=== PATIENT | female | born 1945 | race Caucasian/White ===

== ENCOUNTER 2018-06-05 09:44 | Emergency (ER) | payer MEDICARE, OTHER ==
[2018-06-05] MEDS ORDERED: diphenhydrAMINE 50 MG/ML VIAL ONE (10:55)
[2018-06-05] MEDS ORDERED: Metoclopramide HCl 10 MG/2 ML VIAL ONE (10:55)
[2018-06-05] MEDS ORDERED: Acetaminophen 500 MG TAB ONE (11:03)
--- NOTE | 2018-06-05 12:06 | CT ---
CT HEAD WITHOUT CONTRAST: Date: 06/05/18 Multiple axial tomograms obtained through the head without IV enhancement. INDICATION: Headache. FINDINGS: Ventricles have normal size and position. There are mild chronic ischemic white matter changes. Vilas ncies in the region of the head of the caudate on the right suggest old lacunar infarct. There is no evidence of acute hemorrhage or mass. No evidence of cortical infarct. Visualized sinuses and mastoid s are well aerated and clear. IMPRESSION: Evidence of chronic ischemic changes as described. No acute process. POS: H
[2018-06-05] MEDS ORDERED: Magnesium 2 GM/50 ML BAG (IN WATER) ONE (12:31)
== END 2018-06-05 13:49 | disposition home or self-care (01) ==
LOC: ERS 09:44
DX: G43.909 Migraine, unspecified, not intractable, without status migrainosus (principal); I10 Essential (primary) hypertension; Z79.82 Long term (current) use of aspirin; Z79.899 Other long term (current) drug therapy
CPT/HCPCS: 70450; 96365; 96366; 96368; 96375; J1200; J2765; J3475

== ENCOUNTER 2018-12-23 13:12 | Outpatient (CLI) | payer MEDICARE, BC ==
--- NOTE | 2018-12-23 15:23 | BD ---
BONE DENSITOMETRY USING DEXA: Date: 12/23/18 HISTORY: Postmenopausal screening for osteoporosis. FINDINGS: Lumbar Spine: BMD (g/cm2) L1 0.675 T-Score: -2.9 Z-Score: -0.8 L2 0.780 T-Score: -2.3 Z-Score: 0.1 L3 0.893 T-Score: -1.7 Z-Score: 0.7 L4 0.972 T-Score: -0.8 Z-Score: 1.7 L1-L4 0.834 T-Score: -1.9 Z-Score: 0.4 Femoral Neck: 0.513 T-Score: -3.0 Z-Score: -1.0 Total Femur: 0.756 T-Score: -1.5 Z-Score: 0.0 IMPRESSION: Osteoporosis. POS: OFF
== END 2018-12-23 13:13 | disposition home or self-care (01) ==
LOC: BICMAMMO 13:12
PROVIDERS: ATTEND Physician Assistant
DX: Z13.820 Encounter for screening for osteoporosis (principal); M47.12 Other spondylosis with myelopathy, cervical region; M81.0 Age-related osteoporosis without current pathological fracture
CPT/HCPCS: 77080

== ENCOUNTER 2019-01-08 12:12 | Outpatient (CLI) | payer MEDICARE, BC ==
--- NOTE | 2019-01-08 14:01 | MMO ---
Bilateral MAMMO Bilat Screen [facility]. CLINICAL HISTORY: Patient is 73 years old and is seen for screening. The patient has no family history of breast cancer. The patient has no personal history of cancer. VIEWS: The views performed were: bilateral craniocaudal with tomosynthesis and bilateral mediolateral oblique with tomosynthesis. This study has been interpreted with the assistance of computer-aided detection. MAMMOGRAM FINDINGS: The breasts are heterogeneously dense, which could obscure a lesion on mammography. There are no suspicious masses, suspicious calcifications, or new areas of architectural distortion. IMPRESSION: THERE IS NO MAMMOGRAPHIC EVIDENCE OF MALIGNANCY. A ROUTINE FOLLOW-UP MAMMOGRAM IN 1 YEAR IS RECOMMENDED. THE RESULTS OF THIS EXAM WERE SENT TO THE PATIENT. ACR BI-RADS Category 1 - Negative MAMMOGRAPHY NOTE: 1. A negative mammogram report should not delay a biopsy if a dominant of clinically suspicious mass is present. 2. Approximately 10% to 15% of breast cancers are not detected by mammography. 3. Adenosis and dense breasts may obscure an underlying neoplasm. Reported by: ROSALBA FAY MD Electonically Signed: [id number]
== END 2019-01-08 12:13 | disposition home or self-care (01) ==
LOC: BICMAMMO 12:12
PROVIDERS: ATTEND Physician Assistant
DX: Z12.31 Encounter for screening mammogram for malignant neoplasm of breast (principal)
CPT/HCPCS: 77063; 77067

== ENCOUNTER 2019-07-29 12:06 | Outpatient (CLI) | payer MEDICARE, BC ==
--- NOTE | 2019-07-29 15:23 | ULT ---
EXAM: BILATERAL LOWER EXTREMITY VENOUS DUPLEX ULTRASOUND INCLUDING COLOR AND SPECTRAL DOPPLER IMAGIN07/29/19 HISTORY: Bilateral leg pain. COMPARISON: 01/24/16. FINDINGS: Exam performed from groin to ankle including visualized greater saphenous, common femoral, superficia l femoral, profunda femoral, popliteal, trifurcation, and posterior tibial vein regions. There is ph asic flow with normal compressibility and normal augmentation at all levels. No evidence for intralum inal thrombus. IMPRESSION: No evidence for deep venous thrombosis. POS: [facility]
--- NOTE | 2019-08-05 14:54 | ULT ---
LOWER EXTREMITY ARTERIAL EVALUATION WITH SEGMENTAL LIMB PRESSURES 07/29/19 Examination of the right leg reveals mildly abnormal femoral and popliteal waveforms as well as dorsa lis pedis waveforms. Left lower extremity demonstrates more severe abnormalities in the femoral artery with biphasic to tr iphasic signals distally. ASSESSMENT: This study would be most consistent with mild right sided iliac disease. More severe left sided iliac or common femoral stenosis. Unfortunately ankle-arm index could not be calculated because blood pres sures could not be obtained in either arm due to noncompressible brachial arteries.
== END 2019-07-29 12:07 | disposition home or self-care (01) ==
LOC: BICULT 12:06 → ULT 12:07
PROVIDERS: ATTEND Family Medicine Sports Medicine
DX: I83.893 Varicose veins of bilateral lower extremities with other complications (principal); I73.9 Peripheral vascular disease, unspecified
CPT/HCPCS: 93922; 93970

== ENCOUNTER 2019-09-04 10:24 | Emergency (ER) | payer MEDICARE, BC ==
[2019-09-04] MEDS ORDERED: Metoclopramide HCl 10 MG/2 ML VIAL ONE (10:40)
[2019-09-04] MEDS ORDERED: hydrALAZINE 20 MG/ML VIAL ONE (10:40)
[2019-09-04] MEDS ORDERED: Ondansetron PF 4 MG/2 ML Vial ONE (10:40)
[2019-09-04] MEDS ORDERED: diphenhydrAMINE 50 MG/ML VIAL ONE (10:40)
[2019-09-04 10:51] LABS: #Basophils 0.1 thou/uL (0.0-0.2); #Eosinphils 0.4 thou/uL (0.0-0.7); #Lymphocytes 2.3 thou/uL (1.20-3.40); #Monocytes 0.7 thou/uL (0.11-0.59); #Neutrophils 12.7 thou/uL (1.40-6.50); %Basophils 0.5 % (0.0-1.0); %Eosinophils 2.6 % (0.0-10.0); %Lymphocytes 14.2 % (21.0-51.0); %Monocytes 4.2 % (0.0-10.0); %Neutrophils 78.5 % (42.0-75.0); Hemoglobin 14.6 g/dL (12.0-16.0); Mean Corpuscular HGB CONC 33.6 g/dL (32.0-36.0); Mean Corpuscular Hemoglobin 33.4 pg (27.0-31.0); Mean Corpuscular Volume 99.5 fL (78.0-98.0); Mean Platelet Volume 9.2 fL (7.4-10.4); Platelet Count 166 thou/uL (130-400); RBC Distribution Width 11.1 % (11.5-14.5); Red Blood Cell (RBC) Count 4.37 mill/uL (4.20-5.40); White Blood Cell (WBC) Count 16.1 thou/uL (4.8-10.8)
[2019-09-04 10:59] LABS: INR-International Normal Ratio 0.9; Prothrombin Time 12.5 sec (12.0-14.7)
[2019-09-04 11:00] LABS: PTT 30.2 sec (22.9-36.1)
--- NOTE | 2019-09-04 11:20 | RAD ---
EXAM: Single view of the chest HISTORY: Nausea vomiting and headache COMPARISON: 01/23/2016 FINDINGS: Single view of the chest shows a normal sized cardiomediastinal silhouette. There is no clotilde dence of consolidation, mass, or pleural effusion. The bones are unremarkable. IMPRESSION: No evidence of acute cardiopulmonary disease
[2019-09-04 11:22] LABS: ALT (SGPT) 37 U/L (8-55); AST (SGOT) 32 U/L (5-34); Albumin 4.7 g/dL (3.4-4.8); Alkaline Phosphatase 102 U/L (40-110); Anion Gap 18 mmol/L (10-20); BUN (Urea Nitrogen) 34 mg/dL (9.8-20.1); Bilirubin, Total 0.5 mg/dL (0.2-1.2); CK (CPK) 104 U/L (29-168); Calc. Creatinine Clearance 0 mL/min (70-130); Calcium 10.2 mg/dL (7.8-10.44); Carbon Dioxide 18 mmol/L (23-31); Chloride 107 mmol/L (98-107); Estimated GFR-MDRD 33; Globulin 3.5 g/dL (2.4-3.5); Glucose 114 mg/dL (83-110); Lipase 29 U/L (8-78); Protein, Total 8.2 g/dL (6.0-8.3); Sodium 139 mmol/L (136-145)
--- NOTE | 2019-09-04 11:57 | CT ---
CT BRAIN: Date: 09/04/2019 PROVIDED CLINICAL HISTORY: Headache and vomiting. FINDINGS: Comparison with 06/05/2018. The ventricular system appears normal in size and morphology. There is no evidence for intracranial h emorrhage or mass effect. Chronic microvascular ischemic changes are redemonstrated, similar to prior . The extracranial soft tissues and osseous structures demonstrate no acute abnormality. Stable mucos al thickening seen involving the sphenoid sinus. IMPRESSION: No evidence for intracranial hemorrhage or mass effect. POS: [facility]
--- NOTE | 2019-09-05 15:19 | EKG ---
Test Reason : Blood Pressure : / mmHG Vent. Rate : 099 BPM Atrial Rate : 099 BPM P-R Int : 114 ms QRS Dur : 086 ms QT Int : 374 ms P-R-T Axes : 012 020 063 degrees QTc Int : 479 ms Sinus rhythm with frequent Premature ventricular complexes in a pattern of bigeminy Otherwise normal ECG Confirmed by MISAEL RAPHAEL, MARGARET ([id number]), editor news RICH POSEY ([id number]) on 09/05/2019 3:19:02 PM Referred By: Confirmed By:MARGARET DOUGLAS MD
== END 2019-09-04 12:07 | disposition home or self-care (01) ==
LOC: ERS 10:24
DX: I16.0 Hypertensive urgency (principal); R11.2 Nausea with vomiting, unspecified; R51 Headache; I10 Essential (primary) hypertension
CPT/HCPCS: 70450; 71045; 80053; 82550; 83690; 83880; 84484; 85025; 85610; 85730; 93005; 96365; 96375; J0360; J1200; J2405; J2765

== ENCOUNTER 2019-11-22 11:24 | Emergency (ER) | payer MEDICARE, BC ==
[2019-11-22 12:38] LABS: #Basophils 0.1 thou/uL (0.0-0.2); #Eosinphils 0.2 thou/uL (0.0-0.7); #Lymphocytes 1.9 thou/uL (1.20-3.40); #Monocytes 0.7 thou/uL (0.11-0.59); #Neutrophils 8.9 thou/uL (1.40-6.50); %Basophils 0.6 % (0.0-1.0); %Eosinophils 2.1 % (0.0-10.0); %Lymphocytes 15.9 % (21.0-51.0); %Monocytes 5.9 % (0.0-10.0); %Neutrophils 75.5 % (42.0-75.0); Mean Corpuscular Hemoglobin 33.8 pg (27.0-31.0); Mean Corpuscular Volume 99.4 fL (78.0-98.0); Mean Platelet Volume 9.6 fL (7.4-10.4); Platelet Count 134 thou/uL (130-400); RBC Distribution Width 11.1 % (11.5-14.5); Red Blood Cell (RBC) Count 4.15 mill/uL (4.20-5.40); White Blood Cell (WBC) Count 11.8 thou/uL (4.8-10.8)
[2019-11-22 12:49] LABS: ALT (SGPT) 36 U/L (8-55); AST (SGOT) 31 U/L (5-34); Albumin 4.4 g/dL (3.4-4.8); Alkaline Phosphatase 107 U/L (40-110); Anion Gap 14 mmol/L (10-20); BUN (Urea Nitrogen) 25 mg/dL (9.8-20.1); Bilirubin, Total 0.5 mg/dL (0.2-1.2); Calc. Creatinine Clearance 0 mL/min (70-130); Calcium 9.5 mg/dL (7.8-10.44); Carbon Dioxide 24 mmol/L (23-31); Chloride 103 mmol/L (98-107); Estimated GFR-MDRD 38; Globulin 3.1 g/dL (2.4-3.5); Glucose 83 mg/dL (83-110); Lipase 24 U/L (8-78); Potassium 4.1 mmol/L (3.5-5.1); Protein, Total 7.5 g/dL (6.0-8.3); Sodium 137 mmol/L (136-145)
[2019-11-22 12:59] LABS: Bilirubin Negative (Negative); Blood, Urine 2+ (Negative); Clarity Turbid (Clear); Glucose, Urine (Dipstick) Normal (Negative); Ketone, Urine Negative (Negative); Leukocyte 500 Leu/uL (Negative); Nitrite Negative (Negative); Protein, Urine (Dipstick) 50 mg/dL (Neg-Trace); RBC/HPF 21-50 HPF (0-3); Specific Gravity, Urine 1.015 (1.002-1.036); Squamous Epithelial 0-3 HPF (0-3); Urobilinogen Normal mg/dL (Less than 2); WBC/HPF Greater than 50 HPF (0-3); pH, Urine 6.5 (5.0-9.0)
[2019-11-22 13:06] LABS: Bacteria/HPF 2+ HPF (None Seen)
== END 2019-11-22 13:37 | disposition home or self-care (01) ==
LOC: ERS 11:24
DX: N30.00 Acute cystitis without hematuria (principal); E03.9 Hypothyroidism, unspecified; I10 Essential (primary) hypertension; G43.909 Migraine, unspecified, not intractable, without status migrainosus; Z79.899 Other long term (current) drug therapy
CPT/HCPCS: 80053; 81003; 81015; 83605; 83690; 85025; 87077; 87086; 87186; 99283

== ENCOUNTER 2020-04-05 11:17 | Inpatient (IN) | payer MEDICARE, BC ==
[~2020-04-05 11:17] MED LIST: Iopamidol-370 76% 500 ML 1 ML ONE
[2020-04-05] MEDS ORDERED: Ondansetron PF 4 MG/2 ML Vial ONE (11:36)
[2020-04-05] MEDS ORDERED: Fentanyl 100 MCG/2 ML VIAL ONE (11:36)
[2020-04-05 11:56] LABS: #Eosinphils 0.1 thou/uL (0.0-0.7); #Lymphocytes 2.3 thou/uL (1.20-3.40); #Monocytes 0.3 thou/uL (0.11-0.59); #Neutrophils 4.6 thou/uL (1.40-6.50); %Basophils 0.6 % (0.0-1.0); %Lymphocytes 30.5 % (21.0-51.0); %Monocytes 4.6 % (0.0-10.0); %Neutrophils 62.3 % (42.0-75.0); Hemoglobin 14.4 g/dL (12.0-16.0); Mean Corpuscular HGB CONC 34.8 g/dL (32.0-36.0); Mean Corpuscular Volume 97.7 fL (78.0-98.0); Mean Platelet Volume 9.1 fL (7.4-10.4); Platelet Count 151 thou/uL (130-400); RBC Distribution Width 11.3 % (11.5-14.5); Red Blood Cell (RBC) Count 4.23 mill/uL (4.20-5.40); White Blood Cell (WBC) Count 7.4 thou/uL (4.8-10.8)
--- NOTE | 2020-04-05 11:57 | RAD ---
XR Chest 1 View Portable HISTORY: Altered mental status, headache, dizziness COMPARISON: 09/04/2019 FINDINGS: The heart size is normal. The aorta is tortuous. The lungs are without focal areas of conso lidation, pneumothorax or pleural effusions. IMPRESSION: No radiographic evidence of acute cardiopulmonary process.
[2020-04-05 12:01] LABS: INR-International Normal Ratio 0.9; PTT 29.9 sec (22.9-36.1); Prothrombin Time 12.3 sec (12.0-14.7)
--- NOTE | 2020-04-05 12:08 | CT ---
CT HEAD WITHOUT IV CONTRAST COMPARISON: 09/04/2019 HISTORY: Headache. Patient reports severe left-sided head pain and dizziness. Numbness and blurry vision. TECHNIQUE: Axial CT imaging at 5 mm intervals from vertex through skull base without contrast FINDINGS: There is decreased attenuation in the periventricular white matter which is nonspecific but likely re flective of chronic small vessel ischemic changes. Low attenuation areas are again seen in each basal ganglia suggesting remote lacunar infarctions. Stable linear low-attenuation area in the left c erebellar hemisphere is seen related to remote infarction. There is mild cerebral volume loss. The ventricular system is normal in size, shape, and position for the degree of sulcal atrophy. There is no evidence of an acute cord infarction, hemorrhage, mass effect, or midline shift. Skull base has a normal CT appearance. Mild mucosal thickening is again seen within the left sphenoid sinus. There are findings which may be related to prior ethmoidectomy. Findings are stable compared to prior study. Osseous structures appear intact. CT head is overall stable compared to prior exam. IMPRESSION: 1. No acute intracranial abnormality demonstrated. 2. 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 Stable sinus disease.
[2020-04-05 12:20] LABS: ALT (SGPT) 36 U/L (8-55); AST (SGOT) 32 U/L (5-34); Albumin 4.4 g/dL (3.4-4.8); Alkaline Phosphatase 106 U/L (40-110); Anion Gap 19 mmol/L (10-20); BUN (Urea Nitrogen) 26 mg/dL (9.8-20.1); Bilirubin, Total 0.7 mg/dL (0.2-1.2); CK (CPK) 80 U/L (29-168); Calc. Creatinine Clearance 0 mL/min (70-130); Calcium 9.6 mg/dL (7.8-10.44); Carbon Dioxide 23 mmol/L (23-31); Chloride 101 mmol/L (98-107); Globulin 3.4 g/dL (2.4-3.5); Glucose 97 mg/dL (83-110); Lipase 16 U/L (8-78); Potassium 3.7 mmol/L (3.5-5.1); Protein, Total 7.8 g/dL (6.0-8.3); Sodium 139 mmol/L (136-145)
[2020-04-05] MEDS ORDERED: niCARdipine 20MG In NaCl 20 MG/200 ML BAG ONE ×3 (12:24→20:09)
[2020-04-05 12:34] LABS: Bilirubin Negative (Negative); Blood, Urine Negative (Negative); Clarity Clear (Clear); Glucose, Urine (Dipstick) Normal (Negative); Ketone, Urine Negative (Negative); Leukocyte Negative Leu/uL (Negative); Nitrite Negative (Negative); Protein, Urine (Dipstick) Negative (Neg-Trace); Specific Gravity, Urine 1.011 (1.002-1.036); Urobilinogen Normal mg/dL (Less than 2)
[2020-04-05] MEDS ORDERED: Lorazepam 2 MG/ML VIAL ONE (12:38)
[2020-04-05] MEDS ORDERED: Promethazine HCl 25 MG/ML VIAL ONE (12:38)
[2020-04-05] MEDS ORDERED: diphenhydrAMINE 50 MG/ML VIAL ONE (12:39)
[2020-04-05] MEDS ORDERED: Famotidine/PF 20 mg/2ml Vial ONE (12:39)
[2020-04-05] MEDS ORDERED: Hydrocortisone Sod Succ/PF 100 mg/2 ml Vial ONE (12:39)
--- NOTE | 2020-04-05 14:09 | CT ---
CT angiogram head: 04/05/2020 COMPARISON: None available HISTORY: Left-sided pain and numbness, dizziness, "numbness all over", blurred vision, diffuse extrem ity ataxia TECHNIQUE: Axial CT imaging at 1.25 mm intervals from vertex through skull base with IV contrast usin g CT angiogram protocol. Coronal and sagittal 3-D reformatted imaging obtained. FINDINGS: Visualized portions of bilateral vertebral arteries appear unremarkable. The basilar artery and its branches appear patent. No saccular aneurysm, high-grade stenosis, or vasc ular occlusion is apparent involving the posterior circulation. There is atherosclerotic calcification involving the mid cervical aspect of the left internal carotid artery. The bilateral internal carotid arteries distally demonstrate patency. The A1 segment is patent bilaterally. The A1 segment on the right is relatively diminutive. Distal ELISE branches appear unremarkable. The M1 segment, MCA bifurcation, distal MCA branches, and ICA bifurcation appear within normal limits bilaterally. There is no saccular aneurysm, high-grade stenosis, or vascular occlusion seen involving the anterior circulation. Review of the osseous structures demonstrates no acute findings. IMPRESSION: Unremarkable CT angiogram of the head.
--- NOTE | 2020-04-05 17:52 | PDOC.HHP ---
Hospitalist HPI - History of Present Illness Intractable headache History of Present Illness: Patient is a 74-year-old female with a known past medical history of migraine headache, Hypothyroidism, hypertension and multiple TIAs in the past. She presented to the ER accompanied by her for an acute onset of intractable headache. Patient went to bed with a headache, which he managed with Tylenol. 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 states that patient usually gets headaches in the morning when she wakes up but nothing is today's presentation. Is having some nausea but no vomiting. She has no focal neurologic deficits. She has been compliant with her medications. She checks her blood pressure on a regular basis except to the day before presentation. Her usual blood pressure ranges between 120s and 160s. ED Course: Found to have SBP of 225. She failed challenge with diltiazem injections and was finally started on nicardipine infusion During my encounter with the patient, she was alert but slightly lethargic. She is alert and oriented x2 CT head was negative for intracranial hemorrhage - Exam General - other findings: Awake but lethargic Eye: PERRL, anicteric sclera ENT: normocephalic atraumatic Heart: no murmur, no gallops Heart - other findings: Tachycardic Respiratory: CTAB, no wheezes, no rales, no ronchi Gastrointestinal: soft, non-tender, non-distended, normal bowel sounds Extremities: no clubbing, no edema Neurological: cranial nerve grossly intact, no focal deficits Musculoskeletal: generalized weakness Musculoskeletal - other findings: 3 out of 5 strength in all extremities Psychiatric: normal affect, normal behavior Hospitalist Results - Labs Result Diagrams: 04/05/20 11:33 04/05/20 11:33 Lab results: WBC 7.4 thou/uL (4.8-10.8) 04/05/20 11:33 Hgb 14.4 g/dL (12.0-16.0) 04/05/20 11:33 Hct 41.3 % (36.0-47.0) 04/05/20 11:33 MCV 97.7 fL (78.0-98.0) 04/05/20 11:33 Plt Count 151 thou/uL (130-400) 04/05/20 11:33 Neutrophils % 62.3 % (42.0-75.0) 04/05/20 11:33 Sodium 139 mmol/L (136-145) 04/05/20 11:33 Potassium 3.7 mmol/L (3.5-5.1) 04/05/20 11:33 Chloride 101 mmol/L (98-107) 04/05/20 11:33 Carbon Dioxide 23 mmol/L (23-31) 04/05/20 11:33 BUN 26 mg/dL (9.8-20.1) H 04/05/20 11:33 Creatinine 1.42 mg/dL (0.6-1.1) H 04/05/20 11:33 Glucose 97 mg/dL (83-110) 04/05/20 11:33 Calcium 9.6 mg/dL (7.8-10.44) 04/05/20 11:33 Total Bilirubin 0.7 mg/dL (0.2-1.2) 04/05/20 11:33 AST 32 U/L (5-34) 04/05/20 11:33 ALT 36 U/L (8-55) 04/05/20 11:33 Alkaline Phosphatase 106 U/L (40-110) 04/05/20 11:33 Creatine Kinase 80 U/L (29-168) 04/05/20 11:33 Troponin I Less than 0.010 ng/mL (< 0.028) 04/05/20 11:33 B-Natriuretic Peptide 139.0 pg/mL (0-100) H 04/05/20 11:33 Serum Total Protein 7.8 g/dL (6.0-8.3) 04/05/20 11:33 Albumin 4.4 g/dL (3.4-4.8) 04/05/20 11:33 Lipase 16 U/L (8-78) 04/05/20 11:33 Urine Ketones Negative mg/dL (Negative) 04/05/20 12:23 Urine Blood Negative (Negative) 04/05/20 12:23 Urine Nitrite Negative (Negative) 04/05/20 12:23 Ur Leukocyte Esterase Negative Tono/uL (Negative) 04/05/20 12:23 Hospitalist H&P A/P - Problem (1) Hypertensive urgency Code(s): I16.0 - HYPERTENSIVE URGENCY Status: Acute (2) History of TIA (transient ischemic attack) Code(s): Z86.73 - PRSNL HX OF TIA (TIA), AND CEREB INFRC W/O RESID DEFICITS Status: Acute (3) Anxiety and depression Code(s): F41.9 - ANXIETY DISORDER, UNSPECIFIED; F32.9 - MAJOR DEPRESSIVE DISO RDER, SINGLE EPISODE, UNSPECIFIED Status: Chronic (4) Hypertension Code(s): I10 - ESSENTIAL (PRIMARY) HYPERTENSION Status: Chronic (5) Hypothyroid Code(s): E03.9 - HYPOTHYROIDISM, UNSPECIFIED Status: Chronic (6) Acute kidney injury Code(s): N17.9 - ACUTE KIDNEY FAILURE, UNSPECIFIED Status: Resolved (7) Migraine Code(s): G43.909 - MIGRAINE, UNSP, NOT INTRACTABLE, WITHOUT STATUS MIGRAINOSUS Status: Inactive - Plan Plan: Assessment This is a 74-year-old female with a known past medical history of hypertension, hypothyroidism and chronic migraine currently admitted with intractable headache. Was found to have severely elevated blood pressure with SBP of 225. CT head ruled out intracranial hemorrhage, CTA of [place] w/o subarachnoid hemorrhage. She may have pituitary microadenoma based on the brain MRI from November 2015. She was also found to have right posterior superior parietal lobe infarct and evidence of small vessel disease. I ordered thyroid function tests process endocrinological etiology. In the meantime, she is doing better on nicardipine infusion with SBP in the 170s now. Hypertensive urgency Intractable headache History of CVA Possible pituitary microadenoma Hypothyroidism Chronic migraine Plan: Admit to IMCU with telemetry Continue nicardipine infusion Resume oral blood pressure medications Follow-up thyroid function test. If significantly abnormal, I will repeat her brain MRI I also ordered a 2D echo PRN fiorecet for headache Urine toxicology has been ordered
[2020-04-05] MEDS ORDERED: Fioricet 325/50/40 mg Tablet PO PRN (18:01)
[2020-04-05 18:06] LABS: Free T4 (Free Thyroxine) 1.08 ng/dL (0.70-1.48); Thyroid Stimulating Hormone 0.2129 uIU/mL (0.35-4.94)
[2020-04-05] MEDS ORDERED: Lorazepam 0.5 MG TAB PO PRN (18:23)
[2020-04-05] MEDS ORDERED: NIFEdipine XL 30 MG TAB PO SCH (19:15)
[2020-04-05] MEDS ORDERED: Atorvastatin Calcium 10 MG TAB PO SCH (21:00)
[2020-04-05] MEDS ORDERED: cloNIDine 0.1 MG TAB ONE (21:42)
[2020-04-05] MEDS ORDERED: NIFEdipine XL 30 MG TAB ONE (21:42)
[2020-04-05] MEDS: cloNIDine 0.1 MG TAB PO SCH (21:50)
[2020-04-06] MEDS ORDERED: Fioricet 325/50/40 mg Tablet ONE (00:59)
[2020-04-06] MEDS ORDERED: niCARdipine 20MG In NaCl 20 MG/200 ML BAG ONE (01:09)
[2020-04-06] MEDS ORDERED: traMADol HCl 50 MG TAB PO PRN ×2 (03:07→03:15)
[2020-04-06] MEDS ORDERED: Ketorolac Tromethamine 30 MG/ML VIAL ONE (03:10)
[2020-04-06] MEDS ORDERED: traMADol HCl 50 MG TAB ONE (03:10)
[2020-04-06] MEDS ORDERED: Acetaminophen/Codeine 30-300mg Tablet PO PRN (06:46)
[2020-04-06] MEDS ORDERED: Acetaminophen/Codeine 30-300mg Tablet ONE (07:57)
[2020-04-06] MEDS ORDERED: cloNIDine 0.1 MG TAB ONE (07:58)
[2020-04-06] MEDS ORDERED: NIFEdipine XL 30 MG TAB ONE (07:58)
[2020-04-06] MEDS ORDERED: Aspirin Chewable 81 MG TAB ONE (07:58)
[2020-04-06] MEDS: cloNIDine 0.1 MG TAB PO SCH ×2 (08:04→17:19)
[2020-04-06] MEDS ORDERED: Aspirin 81 mg Enteric Coated Tablet PO SCH (09:00)
[2020-04-06] MEDS ORDERED: NIFEdipine XL 30 MG TAB PO SCH (09:00)
[2020-04-06 09:01] LABS: Anion Gap 15 mmol/L (10-20); BUN (Urea Nitrogen) 21 mg/dL (9.8-20.1); Calc. Creatinine Clearance 35 mL/min (70-130); Calcium 8.8 mg/dL (7.8-10.44); Carbon Dioxide 21 mmol/L (23-31); Chloride 104 mmol/L (98-107); Glucose 84 mg/dL (83-110); Potassium 3.7 mmol/L (3.5-5.1); Sodium 136 mmol/L (136-145)
[2020-04-06] MEDS ORDERED: hydrALAZINE 25 MG TAB ONE (09:49)
[2020-04-06 14:16] LABS: SARS-CoV-2 PCR by NAA Not Detected (NotDetected)
[2020-04-06 15:48] VITALS: BMI 20.3
[2020-04-06 16:19] VITALS: TEMP 98.2
--- NOTE | 2020-04-06 17:06 | PDOC.DS.DS ---
Provider - Provider Date of Admission: 04/05/20 14:57 Date of Discharge: 04/06/20 Admitting Provider: Ravindra Briones MD Primary Care Physician: Zee Ladd PA-C Course - Hospital Course Hospital Course: It is a 74-year-old female with a past medical history of chronic migraine, hypertension and hyper hypothyroidism. She was admitted yesterday with intractable headache and was found to be in hypertensive urgency with SBP of 215. She was placed on nicardipine drip infusion which restored her blood pressure to safer levels. I had to add nifedipine to her antihypertensive agent for better blood pressure control. Her echocardiogram was unremarkable except for impaired relaxation. Her EF was preserved. Her thyroid function test was within normal limits. Patient is alert and oriented and walking without assistance. She will be discharged home today. - Labs Lab Results: 04/05/20 11:33 04/06/20 08:34 Abnormal Lab Results - Last 48 hrs 04/05/20 11:33: MCH 34.0 H, RDW 11.3 L 04/05/20 11:33: BUN 26 H, Creatinine 1.42 H 04/05/20 11:33: B-Natriuretic Peptide 139.0 H 04/05/20 11:33: TSH 3rd Generation 0.2129 L 04/06/20 08:34: Carbon Dioxide 21 L, BUN 21 H, Creatinine 1.15 H - Physical Exam Vitals: Vital Signs (12 hours) Temp Pulse Resp BP BP Pulse Ox 04/06/20 14:18 98.2 F 84 16 138/81 99 04/06/20 14:15 97 04/06/20 08:05 91 142/80 H 04/06/20 08:04 142/80 H Weight Weight 115 lb Physical Exam: The patient was seen and examined on the day of discharge. General: Not in acute distress. Alert and awake HEENT: Head atraumatic, normocephalic. EOM intact Pulmonary: Lungs are clear to auscultation bilaterally CVS: Normal S1 and S2. Regular rate. Abdomen: Soft, nontender, nondistended Extremities: Without edema. Good range of motion in all extremities Skin: Warm and well perfused Psych: Mood and affect appropriate. Neuro: Grossly intact Problem - Problem (1) Hypertensive urgency Code(s): I16.0 - HYPERTENSIVE URGENCY Status: Acute (2) History of TIA (transient ischemic attack) Code(s): Z86.73 - PRSNL HX OF TIA (TIA), AND CEREB INFRC W/O RESID DEFICITS Status: Acute (3) Anxiety and depression Code(s): F41.9 - ANXIETY DISORDER, UNSPECIFIED; F32.9 - MAJOR DEPRESSIVE DISORDER, SINGLE EPISODE, UNSPECIFIED Status: Chronic (4) Hypertension Code(s): I10 - ESSENTIAL (PRIMARY) HYPERTENSION Status: Chronic (5) Hypothyroid Code(s): E03.9 - HYPOTHYROIDISM, UNSPECIFIED Status: Chronic (6) Acute kidney injury Code(s): N17.9 - ACUTE KIDNEY FAILURE, UNSPECIFIED Status: Resolved (7) Migraine Code(s): G43.909 - MIGRAINE, UNSP, NOT INTRACTABLE, WITHOUT STATUS MIGRAINOSUS Status: Inactive Plan - Discharge Medications Prescriptions: NIFEdipine [Procardia XL] 30 mg PO DAILY #30 tab Home Medications: Medication Instructions Recorded Confirmed Type Aspirin [Aspirin EC] 81 mg PO DAILY 01/23/16 08/20/16 History Atorvastatin Calcium 10 mg PO HS 01/23/16 08/20/16 History Divalproex Sodium [Divalproex 500 mg PO HS 01/23/16 08/20/16 History Sodium ER] LORazepam [Lorazepam] 0.5 mg PO TID PRN 01/23/16 08/20/16 History Levothyroxine Sodium [Synthroid] 88 mcg PO DAILY 01/23/16 08/20/16 History Rizatriptan Benzoate [Rizatriptan] 10 mg PO DAILY PRN 01/23/16 08/20/16 History cloNIDine [Catapres] 0.1 mg PO TID 01/23/16 08/20/16 History NIFEdipine [Procardia XL] 30 mg PO DAILY #30 tab 04/06/20 Rx traMADol HCl [Ultram] 50 mg PO Q12H PRN tab 04/06/20 Rx Allergies: ceftriaxone [From Rocephin] Allergy (Verified 06/08/19 11:45) Anaphylaxis iodine Allergy (Verified 06/08/19 11:45) Hives sumatriptan [From Imitrex] Allergy (Verified 06/08/19 11:45) states allergy, cannot remember her reaction. "MYACIN DRUGS" Allergy (Uncoded 06/08/19 11:45) Hives PER ER RECORD - Discharge Instructions Activity:: Activity as Tolerated - Follow up Plan Referrals: Zee Ladd PA-C [Primary Care Provider] - Disposition: HOME Quality - Care Measures CORE MEASURES:: N/A
[2020-04-06 17:25] VITALS: BP 142/80
--- NOTE | 2020-04-24 22:49 | EKG ---
Test Reason : Blood Pressure : / mmHG Vent. Rate : 094 BPM Atrial Rate : 094 BPM P-R Int : 182 ms QRS Dur : 090 ms QT Int : 426 ms P-R-T Axes : 027 013 052 degrees QTc Int : 532 ms Normal sinus rhythm Nonspecific ST abnormality Prolonged QT Abnormal ECG Confirmed by MISAEL RAPHAEL, MARGARET (12), restaurant expeditor RICH POSEY ([id number]) on 04/24/2020 10:49:34 PM Referred By: Confirmed By:MARGARET DOUGLAS MD
== END 2020-04-06 17:43 | disposition home or self-care (01) | DRG 305 ==
LOC: ERS 11:17 → ERHOLD 14:57 → SURG B 04-06 13:41
PROVIDERS: ADMIT Internal Medicine; ATTEND Internal Medicine
DX: I16.0 Hypertensive urgency (principal); N17.9 Acute kidney failure, unspecified; Z20.822 Contact with and (suspected) exposure to COVID-19; E03.9 Hypothyroidism, unspecified; I12.9 Hypertensive chronic kidney disease with stage 1 through stage 4 chronic kidney disease, or unspecified chronic kidney disease; N18.9 Chronic kidney disease, unspecified; F41.9 Anxiety disorder, unspecified; F32.9 Major depressive disorder, single episode, unspecified; G43.909 Migraine, unspecified, not intractable, without status migrainosus; Z90.710 Acquired absence of both cervix and uterus; Z88.1 Allergy status to other antibiotic agents; Z79.899 Other long term (current) drug therapy; Z79.890 Hormone replacement therapy; Z86.73 Personal history of transient ischemic attack (TIA), and cerebral infarction without residual deficits
CPT/HCPCS: 36415; 70450; 70496; 71045; 80048; 80053; 81003; 82550; 83690; 83880; 84439; 84443; 84481; 84484; 85025; 85610; 85730; 87635; 93005; 93306; 96365; 96366; 96368; 96374; 96375; J1200; J1720; J1885; J2060; J2405; J2550; J3010; Q9967; S0028; U0003; U0005

== ENCOUNTER 2020-12-04 12:12 | Emergency (ER) | payer BC, MEDICARE ==
[2020-12-04] MEDS ORDERED: Metoclopramide HCl 10 MG/2 ML VIAL ONE (14:08)
[2020-12-04] MEDS ORDERED: Metoclopramide 10 MG/10 ML UDCUP ONE (14:08)
[2020-12-04] MEDS ORDERED: diphenhydrAMINE 50 MG/ML VIAL ONE ×2 (14:08→16:24)
[2020-12-04 14:26] LABS: #Basophils 0.1 thou/uL (0.0-0.2); #Eosinphils 0.1 thou/uL (0.0-0.7); #Lymphocytes 2.3 thou/uL (1.20-3.40); #Monocytes 0.7 thou/uL (0.11-0.59); #Neutrophils 10.3 thou/uL (1.40-6.50); %Basophils 0.6 % (0.0-1.0); %Eosinophils 0.5 % (0.0-10.0); %Lymphocytes 17.2 % (21.0-51.0); %Monocytes 4.9 % (0.0-10.0); %Neutrophils 76.9 % (42.0-75.0); Hemoglobin 16.6 g/dL (12.0-16.0); Mean Corpuscular HGB CONC 33.3 g/dL (32.0-36.0); Mean Corpuscular Hemoglobin 33.1 pg (27.0-31.0); Mean Corpuscular Volume 99.4 fL (78.0-98.0); Mean Platelet Volume 9.1 fL (7.4-10.4); Platelet Count 195 thou/uL (130-400); RBC Distribution Width 11.8 % (11.5-14.5); Red Blood Cell (RBC) Count 5.03 mill/uL (4.20-5.40); White Blood Cell (WBC) Count 13.4 thou/uL (4.8-10.8)
[2020-12-04 14:51] LABS: Anion Gap 19 mmol/L (10-20); BUN (Urea Nitrogen) 25 mg/dL (9.8-20.1); Calc. Creatinine Clearance 0 mL/min (70-130); Carbon Dioxide 19 mmol/L (23-31); Chloride 101 mmol/L (98-107); Potassium 4.4 mmol/L (3.5-5.1); Sodium 135 mmol/L (136-145)
[2020-12-04 14:52] LABS: ALT (SGPT) 32 U/L (8-55); AST (SGOT) 33 U/L (5-34); Albumin 4.9 g/dL (3.4-4.8); Alkaline Phosphatase 104 U/L (40-110); Bilirubin, Total 0.7 mg/dL (0.2-1.2); Calcium 10.2 mg/dL (7.8-10.44); Globulin 4.1 g/dL (2.4-3.5); Glucose 101 mg/dL (83-110)
[2020-12-04] MEDS ORDERED: Iopamidol-370 76% 500 ML 1 ML ONE (15:26)
[2020-12-04] MEDS ORDERED: Labetalol HCl 100 MG/20 ML VIAL ONE (16:01)
[2020-12-04] MEDS ORDERED: Famotidine 20 MG TAB ONE (16:24)
[2020-12-04] MEDS ORDERED: methylPREDNISolone Sod Succ 40 MG VIAL ONE (16:24)
[2020-12-04] MEDS ORDERED: Famotidine/PF 20 mg/2ml Vial ONE (16:29)
== END 2020-12-04 19:17 | disposition left against medical advice (07) ==
LOC: ERS 12:12
DX: I16.0 Hypertensive urgency (principal); R51.9 Headache, unspecified; E03.9 Hypothyroidism, unspecified; I10 Essential (primary) hypertension
CPT/HCPCS: 70450; 70496; 70498; 80053; 84484; 85025; 93005; 96374; 96375; 96376; J1200; J2765; J2920; Q9967; S0028

== ENCOUNTER 2021-04-29 11:17 | Outpatient (CLI) | payer MEDICARE, BC | END 2021-04-29 11:18 | disposition home or self-care (01) | LOC: MRI 11:17 | PROVIDERS: ATTEND Physician Assistant | DX: M51.16 Intervertebral disc disorders with radiculopathy, lumbar region (principal); M47.26 Other spondylosis with radiculopathy, lumbar region | CPT/HCPCS: 72148 ==

== ENCOUNTER 2022-12-15 20:31 | Emergency (ER) | payer MEDICARE, BC ==
[2022-12-15 21:38] LABS: #Basophils 0.1 thou/uL (0.0-0.2); #Eosinphils 0.5 thou/uL (0.0-0.7); #Monocytes 0.7 thou/uL (0.11-0.59); #Neutrophils 6.1 thou/uL (1.40-6.50); %Basophils 0.6 % (0.0-1.0); %Eosinophils 5.5 % (0.0-10.0); %Lymphocytes 18.3 % (21.0-51.0); %Monocytes 7.8 % (0.0-10.0); %Neutrophils 67.5 % (42.0-75.0); Hematocrit 30.2 % (36.0-47.0); Hemoglobin 10.1 g/dL (12.0-16.0); Mean Corpuscular HGB CONC 33.4 g/dL (32.0-36.0); Mean Corpuscular Hemoglobin 33.3 pg (27.0-31.0); Mean Corpuscular Volume 99.7 fl (78.0-98.0); Mean Platelet Volume 10.9 fL (7.4-10.4); Platelet Count 178 10x3/uL (130-400); RBC Distribution Width 12.7 % (11.5-14.5); Red Blood Cell (RBC) Count 3.03 mill/uL (4.20-5.40); White Blood Cell (WBC) Count 9.1 10x3/uL (4.8-10.8)
[2022-12-15 22:04] LABS: ALT (SGPT) 26 U/L (8-55); AST (SGOT) 25 U/L (5-34); Albumin 3.9 g/dL (3.4-4.8); Alkaline Phosphatase 87 U/L (40-110); Anion Gap 17 mmol/L (10-20); BUN (Urea Nitrogen) 38 mg/dL (9.8-20.1); Bilirubin, Total 0.2 mg/dL (0.2-1.2); Calc. Creatinine Clearance 0 mL/min (70-130); Calcium 9.4 mg/dL (7.8-10.44); Carbon Dioxide 21 mmol/L (23-31); Chloride 105 mmol/L (98-107); Estimated GFR 25; Globulin 3.2 g/dL (2.4-3.5); Glucose 104 mg/dL (83-110); Magnesium 2.3 mg/dL (1.6-2.6); Potassium 4.6 mmol/L (3.5-5.1); Protein, Total 7.1 g/dL (5.8-8.1); Sodium 138 mmol/L (136-145)
[2022-12-15 22:08] LABS: Troponin I 0.026 ng/mL (< 0.028)
[2022-12-15] MEDS ORDERED: Morphine 4 MG/ML VIAL ONE (22:48)
[2022-12-15] MEDS ORDERED: Boostrix 0.5 ML (Tdap) VIAL (>/=7 yrs of age) ONE (22:48)
[2022-12-15] MEDS ORDERED: Lidocaine 1% PF 5 ML VIAL ONE (22:48)
[2022-12-15] MEDS ORDERED: Acetaminophen 500 MG TAB ONE (22:48)
== END 2022-12-16 02:29 | disposition home or self-care (01) ==
LOC: ERS 20:31
DX: S01.81XA Laceration without foreign body of other part of head, initial encounter (principal); E03.9 Hypothyroidism, unspecified; I10 Essential (primary) hypertension; Z79.82 Long term (current) use of aspirin; Z79.899 Other long term (current) drug therapy; W18.30XA Fall on same level, unspecified, initial encounter
CPT/HCPCS: 12014; 70450; 70486; 72125; 80053; 83735; 84443; 84484; 85025; 86850; 86900; 86901; 90471; 90715; 93005; 96374; J2270

== ENCOUNTER 2022-12-25 13:15 | Emergency (ER) | payer MEDICARE, BC | END 2022-12-25 14:02 | disposition home or self-care (01) | LOC: ERS 13:15 | DX: S01.81XD Laceration without foreign body of other part of head, subsequent encounter (principal); E03.9 Hypothyroidism, unspecified; I10 Essential (primary) hypertension; W18.30XD Fall on same level, unspecified, subsequent encounter ==

== ENCOUNTER 2023-09-12 14:32 | Outpatient (CLI) | payer MEDICARE, BC | END 2023-09-12 14:33 | disposition home or self-care (01) | LOC: BICULT 14:32 | PROVIDERS: ATTEND Physician Assistant | DX: M79.605 Pain in left leg (principal) ==

== ENCOUNTER 2023-12-26 10:53 | Outpatient (CLI) | payer MEDICARE, BC | END 2023-12-26 10:54 | disposition home or self-care (01) | LOC: SCSMRI 10:53 | PROVIDERS: ATTEND Orthopaedic Surgery | DX: M54.16 Radiculopathy, lumbar region (principal); M48.061 Spinal stenosis, lumbar region without neurogenic claudication; M48.07 Spinal stenosis, lumbosacral region; G54.4 Lumbosacral root disorders, not elsewhere classified | CPT/HCPCS: 72148 ==

== ENCOUNTER 2024-04-12 22:56 | Inpatient (IN) | payer MEDICARE, BC ==
[2024-04-12 23:28] LABS: #Basophils 0.06 10x3/uL (0.0-0.2); %Basophils 0.5 % (0.0-1.0); %Lymphocytes 16.9 % (21.0-51.0); %Monocytes 6.1 % (0.0-10.0); %Neutrophils 71.2 % (42.0-75.0); Hematocrit 38.7 % (36.0-47.0); Hemoglobin 13.2 g/dL (12.0-16.0); Mean Corpuscular HGB CONC 34.1 g/dL (32.0-36.0); Mean Corpuscular Hemoglobin 31.9 pg (27.0-31.0); Mean Corpuscular Volume 93.5 fL (78.0-98.0); Platelet Count 186 10x3/uL (130-400); RBC Distribution Width 13.2 % (11.5-14.5); Red Blood Cell (RBC) Count 4.14 mill/uL (4.20-5.40)
[2024-04-12] MEDS ORDERED: Magnesium 2 GM/50 ML BAG (IN WATER) ONE (23:29)
[2024-04-12] MEDS ORDERED: Acetaminophen 500 MG TAB ONE (23:30)
[2024-04-12] MEDS ORDERED: Ondansetron PF 4 MG/2 ML Vial ONE ×2 (23:31→23:33)
[2024-04-12 23:38] LABS: INR-International Normal Ratio 0.9; Prothrombin Time 12.2 sec (12.0-14.7)
[2024-04-12 23:40] LABS: Acetaminophen Less than 10 mcg/mL (Less than 10); Alcohol Less than 10.0 mg/dL (Less than 10); Lipase 17 U/L (8-78); Magnesium 2.1 mg/dL (1.6-2.6); Salicylate Less than 8.0 mg/dL (Less than 8.0)
[2024-04-12 23:46] LABS: Troponin I 0.013 ng/mL (< 0.028)
[2024-04-12] MEDS ORDERED: Labetalol HCl 100 MG/20 ML VIAL ONE (23:48)
[2024-04-13] MEDS ORDERED: niCARdipine 25 MG/10 ML SDV ONE (00:11)
[2024-04-13 00:19] LABS: Bacteria/HPF None Seen HPF (None Seen); Bilirubin Negative (Negative); Blood, Urine Negative (Negative); CAUTI Indications for Culture Alt mental st,lethar; Clarity Clear (Clear); Glucose, Urine (Dipstick) 30 mg/dL (Negative); Ketone, Urine Negative (Negative); Leukocyte Negative Leu/uL (Negative); Nitrite Negative (Negative); Protein, Urine (Dipstick) 50 mg/dL (Neg-Trace); RBC/HPF 0-3 HPF (0-3); Squamous Epithelial None Seen HPF (0-3); Urobilinogen Normal mg/dL (Less than 2); WBC/HPF 0-3 HPF (0-3); pH, Urine 7.5 (5.0-9.0)
[2024-04-13 00:22] LABS: Urine Culture Reflex No No
[2024-04-13 00:28] LABS: Amphetamine Not Detected (NotDetected); Barbiturates Screen Not Detected (NotDetected); Benzodiazepine Screen Not Detected (NotDetected); Cocaine Metabolite Screen Not Detected (NotDetected); Methadone Not Detected (NotDetected); Methamphetamine Not Detected (NotDetected); Opiate Screen Not Detected (NotDetected); Oxycodone Screen Not Detected (NotDetected); Phencyclidine (PCP) Not Detected (NotDetected); THC/Cannabinoid Screen Not Detected (NotDetected); Tricyclic Screen Detected (NotDetected)
[2024-04-13 01:21] LABS: ALT (SGPT) 44 U/L (Less than 34); AST (SGOT) 69 U/L (11-34); Albumin 3.9 g/dL (3.1-4.5); Alkaline Phosphatase 114 U/L (40-110); Anion Gap 17 mmol/L (10-20); BUN (Urea Nitrogen) 34 mg/dL (9.8-20.1); Bilirubin, Total 0.5 mg/dL (0.3-1.2); Calc. Creatinine Clearance 0 mL/min (70-130); Calcium 9.5 mg/dL (7.8-10.44); Carbon Dioxide 20 mmol/L (23-31); Chloride 105 mmol/L (98-107); Estimated GFR 26; Globulin 3.5 g/dL (2.4-3.5); Glucose 140 mg/dL (83-110); Potassium 4.2 mmol/L (3.5-5.1); Protein, Total 7.4 g/dL (5.8-8.1); Sodium 138 mmol/L (136-145)
[2024-04-13] MEDS ORDERED: Acetaminophen 650 MG Suppository PR PRN (03:03)
[2024-04-13] MEDS ORDERED: Calcium Carbonate 500 MG ChewTAB PO PRN (03:03)
[2024-04-13] MEDS ORDERED: niCARdipine 25 MG in Sodium Chloride 0.9% 250 ML 250 ML IVPB SCH (03:15)
[2024-04-13 04:39] VITALS: BMI 21.2
[2024-04-13] MEDS: Ondansetron PF 4 MG/2 ML Vial IVP PRN (05:18)
[2024-04-13] MEDS: hydrALAZINE 20 MG/ML VIAL SLOW IVP PRN (05:19)
[2024-04-13] MEDS: Levothyroxine Sodium 88 MCG TAB PO SCH (05:22)
[2024-04-13] MEDS: Morphine 2 MG/ML VIAL SLOW IVP SCH (05:33)
[2024-04-13 06:46] LABS: #Basophils 0.05 10x3/uL (0.0-0.2); %Basophils 0.4 % (0.0-1.0); %Eosinophils 0.5 % (0.0-10.0); %Monocytes 2.6 % (0.0-10.0); %Neutrophils 81.1 % (42.0-75.0); Hematocrit 42.7 % (36.0-47.0); Hemoglobin 14.3 g/dL (12.0-16.0); Mean Corpuscular HGB CONC 33.5 g/dL (32.0-36.0); Mean Corpuscular Hemoglobin 31.4 pg (27.0-31.0); Mean Corpuscular Volume 93.8 fL (78.0-98.0); Platelet Count 196 10x3/uL (130-400); RBC Distribution Width 13.1 % (11.5-14.5); Red Blood Cell (RBC) Count 4.55 mill/uL (4.20-5.40)
[2024-04-13 07:30] LABS: ALT (SGPT) 42 U/L (Less than 34); AST (SGOT) 49 U/L (11-34); Albumin 3.9 g/dL (3.1-4.5); Alkaline Phosphatase 117 U/L (40-110); Anion Gap 18 mmol/L (10-20); BUN (Urea Nitrogen) 32 mg/dL (9.8-20.1); Bilirubin, Total 0.6 mg/dL (0.3-1.2); Calc. Creatinine Clearance 22 mL/min (70-130); Calcium 10.1 mg/dL (7.8-10.44); Carbon Dioxide 18 mmol/L (23-31); Chloride 104 mmol/L (98-107); Estimated GFR 28; Globulin 3.9 g/dL (2.4-3.5); Glucose 154 mg/dL (83-110); Potassium 4.1 mmol/L (3.5-5.1); Protein, Total 7.8 g/dL (5.8-8.1); Sodium 136 mmol/L (136-145)
[2024-04-13] MEDS ORDERED: Morphine 4 MG/ML VIAL SLOW IVP PRN (08:10)
[2024-04-13] MEDS ORDERED: niCARdipine 40MG In NaCl 40 MG/200 ML BAG IVPB SCH (08:15)
[2024-04-13] MEDS: Ondansetron ODT 4 MG TAB PO PRN (08:16)
[2024-04-13] MEDS: Losartan 25 MG TAB PO SCH (08:17)
[2024-04-13] MEDS: Pantoprazole 40 MG DR.TAB PO SCH (08:18)
[2024-04-13] MEDS: hydrALAZINE 25 MG TAB PO SCH (08:18)
[2024-04-13] MEDS: cloNIDine 0.1 MG TAB PO SCH (08:18)
[2024-04-13] MEDS: Morphine 4 MG/ML VIAL ONE (08:38)
[2024-04-13] MEDS ORDERED: Famotidine 20 MG TAB PO SCH (09:00)
[2024-04-13] MEDS ORDERED: Famotidine/PF 20 mg/2ml Vial SLOW IVP SCH (09:00)
[2024-04-13] MEDS: Acetaminophen 325 MG TAB PO PRN (09:55)
[2024-04-13] MEDS: niCARdipine 50 MG, Admixture Fee 1 EACH in Sodium Chloride 0.9% 250 ML 230 ML IV SCH (10:36)
[2024-04-13] MEDS ORDERED: RIZATRIPTAN BENZOATE 10 MG PO PRN (13:09)
[2024-04-13] MEDS: Ondansetron ODT 8 MG TAB SL PRN (20:33)
[2024-04-13] MEDS: Promethazine HCl 25 MG/ML VIAL IM PRN (22:05)
[2024-04-13] MEDS: Atorvastatin Calcium 20 MG TAB PO SCH (22:11)
[2024-04-13] MEDS: Nortriptyline HCl 25 MG CAP PO SCH (22:13)
[2024-04-14 05:39] LABS: Hematocrit 40.6 % (36.0-47.0); Hemoglobin 13.3 g/dL (12.0-16.0); Mean Corpuscular HGB CONC 32.8 g/dL (32.0-36.0); Mean Corpuscular Hemoglobin 31.3 pg (27.0-31.0); Mean Corpuscular Volume 95.5 fL (78.0-98.0); Mean Platelet Volume 10.9 fL (7.4-10.4); Platelet Count 200 10x3/uL (130-400); RBC Distribution Width 13.6 % (11.5-14.5); Red Blood Cell (RBC) Count 4.25 mill/uL (4.20-5.40)
[2024-04-14 06:00] LABS: Anion Gap 15 mmol/L (10-20); BUN (Urea Nitrogen) 42 mg/dL (9.8-20.1); Calc. Creatinine Clearance 17 mL/min (70-130); Calcium 9.6 mg/dL (7.8-10.44); Carbon Dioxide 23 mmol/L (23-31); Chloride 104 mmol/L (98-107); Estimated GFR 20; Glucose 121 mg/dL (83-110); Potassium 4.4 mmol/L (3.5-5.1); Sodium 138 mmol/L (136-145)
[2024-04-14] MEDS: Lorazepam 0.5 MG TAB PO PRN (07:27)
[2024-04-14] MEDS: QUEtiapine 25 MG TAB PO SCH (10:04)
[2024-04-14] MEDS: Aspirin 81 mg Enteric Coated Tablet PO SCH (10:05)
[2024-04-16 05:46] LABS: Hematocrit 37.8 % (36.0-47.0); Hemoglobin 12.1 g/dL (12.0-16.0); Mean Corpuscular Hemoglobin 31.9 pg (27.0-31.0); Mean Corpuscular Volume 99.7 fL (78.0-98.0); Mean Platelet Volume 10.9 fL (7.4-10.4); Platelet Count 174 10x3/uL (130-400); RBC Distribution Width 13.5 % (11.5-14.5); Red Blood Cell (RBC) Count 3.79 mill/uL (4.20-5.40)
[2024-04-16 06:04] LABS: Calcium 8.8 mg/dL (7.8-10.44); Chloride 106 mmol/L (98-107); Potassium 4.5 mmol/L (3.5-5.1); Sodium 136 mmol/L (136-145)
[2024-04-16 06:05] LABS: Glucose 99 mg/dL (83-110)
[2024-04-16 06:07] LABS: Anion Gap 15 mmol/L (10-20); Carbon Dioxide 20 mmol/L (23-31)
[2024-04-16 06:09] LABS: BUN (Urea Nitrogen) 62 mg/dL (9.8-20.1); Calc. Creatinine Clearance 14 mL/min (70-130); Estimated GFR 14
[2024-04-16] MEDS: Sodium Chloride 0.9% 1,000 ML IV SCH (12:08)
[2024-04-17 06:22] LABS: Anion Gap 13 mmol/L (10-20); BUN (Urea Nitrogen) 52 mg/dL (9.8-20.1); Calc. Creatinine Clearance 17 mL/min (70-130); Calcium 8.6 mg/dL (7.8-10.44); Carbon Dioxide 18 mmol/L (23-31); Chloride 109 mmol/L (98-107); Estimated GFR 17; Glucose 100 mg/dL (83-110); Potassium 4.4 mmol/L (3.5-5.1); Sodium 136 mmol/L (136-145)
[2024-04-17] MEDS: Metoprolol Tartrate 25 MG TAB PO SCH (09:14)
[2024-04-17] MEDS ORDERED: Polyethylene Glycol 3350 17 GM Packet PO PRN (12:14)
[2024-04-18 09:06] VITALS: TEMP 97.8
[2024-04-18 10:47] LABS: Anion Gap 12 mmol/L (10-20); BUN (Urea Nitrogen) 49 mg/dL (9.8-20.1); Calc. Creatinine Clearance 19 mL/min (70-130); Calcium 8.9 mg/dL (7.8-10.44); Carbon Dioxide 20 mmol/L (23-31); Chloride 109 mmol/L (98-107); Estimated GFR 20; Glucose 143 mg/dL (83-110); Potassium 4.6 mmol/L (3.5-5.1); Sodium 136 mmol/L (136-145)
[2024-04-18 13:19] VITALS: BP 106/62
== END 2024-04-18 13:40 | disposition home or self-care (01) | DRG 305 ==
LOC: ERS 22:56 → IMCU/EMU 04-13 03:19 → CCU 04-13 10:10 → MSONC 04-14 20:30
PROVIDERS: ADMIT Student in an Organized Health Care Education/Training Program; ATTEND Internal Medicine
DX: I16.1 Hypertensive emergency (principal); I67.4 Hypertensive encephalopathy; N17.9 Acute kidney failure, unspecified; F05 Delirium due to known physiological condition; E87.20 Acidosis, unspecified; N18.4 Chronic kidney disease, stage 4 (severe); I12.9 Hypertensive chronic kidney disease with stage 1 through stage 4 chronic kidney disease, or unspecified chronic kidney disease; E03.9 Hypothyroidism, unspecified; G43.909 Migraine, unspecified, not intractable, without status migrainosus; F03.A0 Unspecified dementia, mild, without behavioral disturbance, psychotic disturbance, mood disturbance, and anxiety; Z88.1 Allergy status to other antibiotic agents; Z91.041 Radiographic dye allergy status; Z90.710 Acquired absence of both cervix and uterus; Z90.89 Acquired absence of other organs; Z90.49 Acquired absence of other specified parts of digestive tract; Z95.820 Peripheral vascular angioplasty status with implants and grafts
CPT/HCPCS: 36415; 36416; 70450; 71045; 80048; 80053; 80306; 80307; 81001; 83605; 83690; 83735; 83880; 84484; 85025; 85027; 85610; 85730; 93005; 96365; 96366; 96375; J0360; J2270; J2272; J2405; J2550; J3475; J7030; J7050; Q0162

== ENCOUNTER 2024-11-09 17:16 | Inpatient (IN) | payer MEDICARE, BC ==
[~2024-11-09 17:16] MED LIST changes: +Iopamidol 370 76% 100 ML VIAL ONE; -Iopamidol-370 76% 500 ML 1 ML ONE
[2024-11-09] MEDS ORDERED: Ondansetron PF 4 MG/2 ML Vial ONE (19:01)
[2024-11-09 19:04] LABS: #Basophils 0.04 10x3/uL (0.0-0.2); #Eosinophils Less than 0.03 10x3/uL (0.0-0.7); #Monocytes 0.83 10x3/uL (0.11-0.59); #Neutrophils 8.17 10x3/uL (1.40-6.50); %Basophils 0.4 % (0.0-1.0); %Eosinophils 0.1 % (0.0-10.0); %Lymphocytes 14.6 % (21.0-51.0); %Monocytes 7.8 % (0.0-10.0); %Neutrophils 76.5 % (42.0-75.0); Hematocrit 44.8 % (36.0-47.0); Hemoglobin 15.0 g/dL (12.0-16.0); Mean Corpuscular Hemoglobin 31.7 pg (27.0-31.0); Mean Corpuscular Volume 94.7 fL (78.0-98.0); Platelet Count 235 10x3/uL (130-400); Red Blood Cell (RBC) Count 4.73 mill/uL (4.20-5.40); White Blood Cell (WBC) Count 10.67 10x3/uL (4.8-10.8)
[2024-11-09 19:20] LABS: ALT (SGPT) 16 U/L (Less than 34); AST (SGOT) 30 U/L (11-34); Albumin 4.3 g/dL (3.1-4.5); Alkaline Phosphatase 111 U/L (40-110); Anion Gap 21 mmol/L (10-20); BUN (Urea Nitrogen) 42 mg/dL (9.8-20.1); Bilirubin, Total 0.7 mg/dL (0.3-1.2); Calc. Creatinine Clearance 0 mL/min (70-130); Calcium 10.7 mg/dL (7.8-10.44); Carbon Dioxide 15 mmol/L (23-31); Chloride 107 mmol/L (98-107); Globulin 4.4 g/dL (2.4-3.5); Glucose 117 mg/dL (83-110); Potassium 5.3 mmol/L (3.5-5.1); Sodium 138 mmol/L (136-145)
[2024-11-09 19:27] LABS: Lipase 26.0 U/L (8-78)
[2024-11-09 19:29] LABS: CRP, High Sensitivity at Bryan 0.59 mg/dL (< or = 0.5)
[2024-11-09] MEDS ORDERED: cefTRIAXone (ROCEPHIN) 2 GM VIAL ONE (22:02)
[2024-11-09] MEDS ORDERED: EPINEPHrine 1 MG/10 ML Abboject SYRINGE ONE (22:14)
[2024-11-09] MEDS ORDERED: NOREPINEPHRINE 8 MG/250 ML-D5W 250 ML ONE (22:30)
[2024-11-09 22:44] LABS: Analyzer IN Cardio ER; Base Excess (BEa) -18.6 mEq/L (-2.0 to +3.0); CO2 Tension 27.9 mmHg (35.0-45.0); Calcium, Ionized (arterial) 1.27 mmol/L (1.12-1.30); Hematocrit-ABG 41 % (36.0-47.0); Hemoglobin (Hb) 13.8 g/dL (12.0-16.0); O2 Tension (PaO2), arterial 317.6 mmHg (> 70.0); Potassium - ABG Lab 3.77 mmol/L (3.70-5.30)
[2024-11-09 22:45] LABS: pH, Arterial 7.131 (7.35-7.45)
[2024-11-09 22:46] LABS: ALV-art Gradient 4.025 mmHg (0-20); Actual Bicarbonate (HCO3a) 9.1 mEq/L (22-28); Puncture Site Right Brachial art
[2024-11-09 23:00] LABS: Hematocrit 45.2 % (36.0-47.0); Hemoglobin 14.6 g/dL (12.0-16.0); Mean Corpuscular Hemoglobin 31.1 pg (27.0-31.0); Mean Corpuscular Volume 96.2 fL (78.0-98.0); Platelet Count 187 10x3/uL (130-400); Red Blood Cell (RBC) Count 4.70 mill/uL (4.20-5.40); White Blood Cell (WBC) Count 5.39 10x3/uL (4.8-10.8)
[2024-11-09 23:14] LABS: Anion Gap 22 mmol/L (10-20); BUN (Urea Nitrogen) 41 mg/dL (9.8-20.1); Calc. Creatinine Clearance 0 mL/min (70-130); Carbon Dioxide 12 mmol/L (23-31); Chloride 112 mmol/L (98-107); Glucose 138 mg/dL (83-110); Potassium 4.3 mmol/L (3.5-5.1); Sodium 142 mmol/L (136-145)
[2024-11-09 23:15] LABS: ALT (SGPT) 27 U/L (Less than 34); AST (SGOT) 40 U/L (11-34); Albumin 3.7 g/dL (3.1-4.5); Alkaline Phosphatase 109 U/L (40-110); Bilirubin, Total 0.5 mg/dL (0.3-1.2); CK (CPK) 143 U/L (29-168); Calcium 9.8 mg/dL (7.8-10.44); Globulin 3.6 g/dL (2.4-3.5); Lipase 23 U/L (8-78); Magnesium 2.3 mg/dL (1.6-2.6)
[2024-11-09] MEDS ORDERED: diphenhydrAMINE 50 MG/ML VIAL ONE (23:16)
[2024-11-09] MEDS ORDERED: Famotidine/PF 20 mg/2ml Vial ONE (23:16)
[2024-11-09 23:19] LABS: Nucleated RBC (Manual Ct) 1 % (0); Platelet Adequacy Comment Platelets Normal; Poikilocytosis SLIGHT = 6-15 cells HPF (0-5); Polychromasia SLIGHT = 2-3 cells HPF (0-2)
[2024-11-10 00:18] LABS: Bacteria/HPF 4+ HPF (None Seen); CAUTI Indications for Culture Alt mental st,lethar; Glucose, Urine (Dipstick) Normal (Negative); Leukocyte 500 Leu/uL (Negative); Protein, Urine (Dipstick) 200 mg/dL (Neg-Trace); Specific Gravity, Urine 1.014 (1.002-1.036); WBC/HPF Greater than 50 HPF (0-3)
[2024-11-10 00:22] LABS: Urine Culture Reflex Yes Yes
[2024-11-10 00:51] LABS: INR-International Normal Ratio 2.1; Prothrombin Time 23.9 sec (12.0-14.7)
[2024-11-10 00:52] LABS: PTT 80.6 sec (22.9-36.1)
[2024-11-10 02:03] LABS: Hematocrit 43.7 % (36.0-47.0); Hemoglobin 13.9 g/dL (12.0-16.0); Platelet Count 206 10x3/uL (130-400)
[2024-11-10] MEDS ORDERED: DISCONTINUE PREVIOUS NARCOTIC PAIN MEDICATIONS AND BENZODIAZEPINES FS SCH (02:30)
[2024-11-10] MEDS ORDERED: Propofol BOLUS 1,000 MG/100 ML VIAL IV PRN (02:30)
[2024-11-10] MEDS ORDERED: Fentanyl BOLUS 100 ML IVPB PRN (02:30)
[2024-11-10] MEDS: NOREPINEPHRINE 8 MG/250 ML-D5W 250 ML IVPB SCH (02:34)
[2024-11-10] MEDS: Heparin 10,000 UNITS/ 10 ML VIAL SLOW IVP SCH (04:19)
[2024-11-10] MEDS: Hyaluronidase, Human Recomb. 150 UNITS/ML VIAL SC SCH (04:40)
[2024-11-10] MEDS: Ventilator Sedation Protocol 1 EACH FS ONE (05:10)
[2024-11-10 05:38] LABS: Anion Gap 20 mmol/L (10-20); BUN (Urea Nitrogen) 49 mg/dL (9.8-20.1); Calc. Creatinine Clearance 15 mL/min (70-130); Calcium 8.5 mg/dL (7.8-10.44); Carbon Dioxide 15 mmol/L (23-31); Cardiac Risk 7.6 (Less than 4.5); Chloride 106 mmol/L (98-107); Cholesterol 236 mg/dl (< 200 Desired); Glucose 264 mg/dL (83-110); HDL Cholesterol 31 mg/dL (>60 Neg Risk); LDL Cholesterol, Calculated 173 mg/dL; Magnesium 2.0 mg/dL (1.6-2.6); Potassium 4.0 mmol/L (3.5-5.1); Sodium 137 mmol/L (136-145); Triglycerides 161 mg/dL (Less than 150)
[2024-11-10 05:40] LABS: ALT (SGPT) 56 U/L (Less than 34); AST (SGOT) 92 U/L (11-34); Albumin 3.1 g/dL (3.1-4.5); Alkaline Phosphatase 87 U/L (40-110); Anion Gap 18 mmol/L (10-20); BUN (Urea Nitrogen) 49 mg/dL (9.8-20.1); Bilirubin, Total 0.4 mg/dL (0.3-1.2); Calc. Creatinine Clearance 15 mL/min (70-130); Calcium 8.5 mg/dL (7.8-10.44); Carbon Dioxide 15 mmol/L (23-31); Chloride 107 mmol/L (98-107); Globulin 3.0 g/dL (2.4-3.5); Glucose 263 mg/dL (83-110); Potassium 3.9 mmol/L (3.5-5.1); Sodium 136 mmol/L (136-145)
[2024-11-10 05:51] LABS: #Basophils 0.05 10x3/uL (0.0-0.2); #Eosinophils Less than 0.03 10x3/uL (0.0-0.7); #Monocytes 1.49 10x3/uL (0.11-0.59); #Neutrophils 25.15 10x3/uL (1.40-6.50); %Basophils 0.2 % (0.0-1.0); %Eosinophils 0.0 % (0.0-10.0); %Lymphocytes 3.7 % (21.0-51.0); %Monocytes 5.3 % (0.0-10.0); %Neutrophils 89.9 % (42.0-75.0); Hematocrit 41.7 % (36.0-47.0); Hemoglobin 13.4 g/dL (12.0-16.0); Mean Corpuscular Hemoglobin 31.3 pg (27.0-31.0); Mean Corpuscular Volume 97.4 fL (78.0-98.0); Platelet Count 198 10x3/uL (130-400); Red Blood Cell (RBC) Count 4.28 mill/uL (4.20-5.40); White Blood Cell (WBC) Count 27.97 10x3/uL (4.8-10.8)
[2024-11-10] MEDS: Aspirin 325 MG TAB PO SCH (05:59)
[2024-11-10 06:42] LABS: ALV-art Gradient 50.250 mmHg (0-20); Actual Bicarbonate (HCO3a) 16.0 mEq/L (22-28); Base Excess (BEa) -9.0 mEq/L (-2.0 to +3.0); CO2 Tension 32.0 mmHg (35.0-45.0); Calcium, Ionized (arterial) 1.13 mmol/L (1.12-1.30); Hematocrit-ABG 38 % (36.0-47.0); Hemoglobin (Hb) 13.0 g/dL (12.0-16.0); O2 Tension (PaO2), arterial 159.3 mmHg (> 70.0); Potassium - ABG Lab 3.71 mmol/L (3.70-5.30); Puncture Site Right Radial artery; pH, Arterial 7.317 (7.35-7.45)
[2024-11-10] MEDS: PNEUMOC 20-VAL CONJ-DIP CRM/PF 0.5 ML SYRINGE IM ONE (12:25)
[2024-11-10 13:29] LABS: PTT 175.3 sec (22.9-36.1)
[2024-11-10] MEDS ORDERED: Magnesium Sulfate/D5W 1 GM/100 ML BAG IVPB SCH (15:00)
[2024-11-10] MEDS: Magnesium Sulfate 1 GM, Admixture Fee 1 EACH in Sodium Chloride 0.9% 100 ML IV SCH (17:00)
[2024-11-10 17:21] LABS: Anion Gap 20 mmol/L (10-20); BUN (Urea Nitrogen) 52 mg/dL (9.8-20.1); Calc. Creatinine Clearance 13 mL/min (70-130); Calcium 8.5 mg/dL (7.8-10.44); Carbon Dioxide 15 mmol/L (23-31); Chloride 104 mmol/L (98-107); Glucose 104 mg/dL (83-110); Potassium 4.4 mmol/L (3.5-5.1); Sodium 135 mmol/L (136-145)
[2024-11-10] MEDS ORDERED: Vancomycin Dose by Levels Sliding Scale (Wt <71) FS SCH (19:45)
[2024-11-10] MEDS: Pantoprazole 40 MG VIAL IVP SCH (20:54)
[2024-11-10] MEDS: Vancomycin 1 GM in Premix 1 BAG IVPB SCH (23:20)
[2024-11-11 04:08] LABS: #Basophils 0.04 10x3/uL (0.0-0.2); #Eosinophils Less than 0.03 10x3/uL (0.0-0.7); #Monocytes 1.40 10x3/uL (0.11-0.59); #Neutrophils 16.93 10x3/uL (1.40-6.50); %Basophils 0.2 % (0.0-1.0); %Eosinophils 0.0 % (0.0-10.0); %Lymphocytes 12.7 % (21.0-51.0); %Monocytes 6.6 % (0.0-10.0); %Neutrophils 79.4 % (42.0-75.0); Hematocrit 33.0 % (36.0-47.0); Hemoglobin 10.4 g/dL (12.0-16.0); Mean Corpuscular Hemoglobin 30.7 pg (27.0-31.0); Mean Corpuscular Volume 97.3 fL (78.0-98.0); Platelet Count 123 10x3/uL (130-400); Red Blood Cell (RBC) Count 3.39 mill/uL (4.20-5.40); White Blood Cell (WBC) Count 21.32 10x3/uL (4.8-10.8)
[2024-11-11 04:15] LABS: Vancomycin, Random 32.3 ug/mL (See Comment)
[2024-11-11 04:18] LABS: ALT (SGPT) 61 U/L (Less than 34); AST (SGOT) 74 U/L (11-34); Albumin 2.7 g/dL (3.1-4.5); Alkaline Phosphatase 65 U/L (40-110); Anion Gap 19 mmol/L (10-20); BUN (Urea Nitrogen) 57 mg/dL (9.8-20.1); Bilirubin, Total 0.4 mg/dL (0.3-1.2); Calc. Creatinine Clearance 10 mL/min (70-130); Calcium 8.0 mg/dL (7.8-10.44); Carbon Dioxide 18 mmol/L (23-31); Chloride 102 mmol/L (98-107); Globulin 2.7 g/dL (2.4-3.5); Glucose 97 mg/dL (83-110); Potassium 4.5 mmol/L (3.5-5.1); Sodium 134 mmol/L (136-145)
[2024-11-12 02:32] LABS: #Basophils Less than 0.03 10x3/uL (0.0-0.2); #Eosinophils 0.25 10x3/uL (0.0-0.7); #Monocytes 1.50 10x3/uL (0.11-0.59); #Neutrophils 15.94 10x3/uL (1.40-6.50); %Basophils 0.1 % (0.0-1.0); %Eosinophils 1.2 % (0.0-10.0); %Lymphocytes 14.1 % (21.0-51.0); %Monocytes 7.2 % (0.0-10.0); %Neutrophils 76.5 % (42.0-75.0); Hematocrit 27.8 % (36.0-47.0); Hemoglobin 9.4 g/dL (12.0-16.0); Mean Corpuscular Hemoglobin 31.1 pg (27.0-31.0); Mean Corpuscular Volume 94.0 fL (78.0-98.0); Platelet Count 114 10x3/uL (130-400); Red Blood Cell (RBC) Count 2.99 mill/uL (4.20-5.40); White Blood Cell (WBC) Count 20.83 10x3/uL (4.8-10.8)
[2024-11-12 02:33] LABS: ALT (SGPT) 53 U/L (Less than 34); AST (SGOT) 64 U/L (11-34); Albumin 2.6 g/dL (3.1-4.5); Alkaline Phosphatase 58 U/L (40-110); Anion Gap 19 mmol/L (10-20); BUN (Urea Nitrogen) 63 mg/dL (9.8-20.1); Bilirubin, Total 0.3 mg/dL (0.3-1.2); Calc. Creatinine Clearance 10 mL/min (70-130); Calcium 8.0 mg/dL (7.8-10.44); Carbon Dioxide 17 mmol/L (23-31); Chloride 101 mmol/L (98-107); Globulin 2.9 g/dL (2.4-3.5); Glucose 109 mg/dL (83-110); Potassium 4.3 mmol/L (3.5-5.1); Sodium 133 mmol/L (136-145)
[2024-11-12 02:42] LABS: Other Cell Types 1.0; Platelet Adequacy Comment Platelets Decreased; Smudge Cells 2.0 %
[2024-11-12 06:40] VITALS: BMI 25.9
[2024-11-12 06:59] LABS: Actual Bicarbonate (HCO3a) 19.6 mEq/L (22-28); Base Excess (BEa) -4.1 mEq/L (-2.0 to +3.0); CO2 Tension 30.8 mmHg (35.0-45.0); Calcium, Ionized (arterial) 1.06 mmol/L (1.12-1.30); Hematocrit-ABG 29 % (36.0-47.0); Hemoglobin (Hb) 9.9 g/dL (12.0-16.0); O2 Tension (PaO2), arterial 161.5 mmHg (> 70.0); Potassium - ABG Lab 3.64 mmol/L (3.70-5.30); pH, Arterial 7.421 (7.35-7.45)
[2024-11-12] MEDS: Scopolamine 1 mg/72 hour Patch TD SCH (10:14)
[2024-11-12] MEDS: Ondansetron PF 4 MG/2 ML Vial IVP PRN (10:26)
[2024-11-12] MEDS ORDERED: DC Sedation Protocol FS SCH (10:43)
[2024-11-12] MEDS: hydrALAZINE 20 MG/ML VIAL SLOW IVP PRN (13:34)
[2024-11-12] MEDS: Ondansetron PF 4 MG/2 ML Vial IVP SCH (15:40)
[2024-11-12 17:42] LABS: PTT 165.6 sec (22.9-36.1)
[2024-11-12 19:34] LABS: PTT 132.1 sec (22.9-36.1)
[2024-11-13 04:00] LABS: #Basophils 0.03 10x3/uL (0.0-0.2); #Eosinophils Less than 0.03 10x3/uL (0.0-0.7); #Monocytes 1.05 10x3/uL (0.11-0.59); #Neutrophils 14.34 10x3/uL (1.40-6.50); %Basophils 0.2 % (0.0-1.0); %Eosinophils 0.0 % (0.0-10.0); %Lymphocytes 7.7 % (21.0-51.0); %Monocytes 6.2 % (0.0-10.0); %Neutrophils 84.3 % (42.0-75.0); Hematocrit 27.1 % (36.0-47.0); Hemoglobin 8.8 g/dL (12.0-16.0); Mean Corpuscular Hemoglobin 31.1 pg (27.0-31.0); Mean Corpuscular Volume 95.8 fL (78.0-98.0); Platelet Count 113 10x3/uL (130-400); Red Blood Cell (RBC) Count 2.83 mill/uL (4.20-5.40); White Blood Cell (WBC) Count 17.01 10x3/uL (4.8-10.8)
[2024-11-13 04:25] LABS: ALT (SGPT) 47 U/L (Less than 34); AST (SGOT) 58 U/L (11-34); Albumin 2.7 g/dL (3.1-4.5); Alkaline Phosphatase 59 U/L (40-110); Anion Gap 18 mmol/L (10-20); BUN (Urea Nitrogen) 64 mg/dL (9.8-20.1); Bilirubin, Total 0.4 mg/dL (0.3-1.2); Calc. Creatinine Clearance 12 mL/min (70-130); Calcium 8.4 mg/dL (7.8-10.44); Carbon Dioxide 22 mmol/L (23-31); Chloride 98 mmol/L (98-107); Globulin 3.2 g/dL (2.4-3.5); Glucose 128 mg/dL (83-110); Potassium 3.7 mmol/L (3.5-5.1); Sodium 134 mmol/L (136-145)
[2024-11-13] MEDS: Pantoprazole 40 MG VIAL IVP SCH (09:40)
[2024-11-13] MEDS ORDERED: Guaifenesin DM 100-10/5 ML UDCUP PO PRN (12:35)
[2024-11-14] MEDS: diphenhydrAMINE 50 MG/ML VIAL IVP PRN (02:00)
[2024-11-14] MEDS: Scopolamine 1 mg/72 hour Patch TOP PRN (02:01)
[2024-11-14 03:05] LABS: #Basophils 0.03 10x3/uL (0.0-0.2); #Eosinophils Less than 0.03 10x3/uL (0.0-0.7); #Monocytes 1.34 10x3/uL (0.11-0.59); #Neutrophils 15.40 10x3/uL (1.40-6.50); %Basophils 0.2 % (0.0-1.0); %Eosinophils 0.1 % (0.0-10.0); %Lymphocytes 5.6 % (21.0-51.0); %Monocytes 7.3 % (0.0-10.0); %Neutrophils 84.1 % (42.0-75.0); Hematocrit 25.1 % (36.0-47.0); Hemoglobin 8.3 g/dL (12.0-16.0); Mean Corpuscular Hemoglobin 31.9 pg (27.0-31.0); Mean Corpuscular Volume 96.5 fL (78.0-98.0); Platelet Count 127 10x3/uL (130-400); Red Blood Cell (RBC) Count 2.60 mill/uL (4.20-5.40); White Blood Cell (WBC) Count 18.30 10x3/uL (4.8-10.8)
[2024-11-14 07:25] LABS: ALT (SGPT) 39 U/L (Less than 34); AST (SGOT) 48 U/L (11-34); Albumin 2.7 g/dL (3.1-4.5); Alkaline Phosphatase 55 U/L (40-110); Anion Gap 19 mmol/L (10-20); BUN (Urea Nitrogen) 54 mg/dL (9.8-20.1); Bilirubin, Total 0.4 mg/dL (0.3-1.2); Calc. Creatinine Clearance 12 mL/min (70-130); Calcium 8.7 mg/dL (7.8-10.44); Carbon Dioxide 20 mmol/L (23-31); Chloride 100 mmol/L (98-107); Globulin 3.4 g/dL (2.4-3.5); Glucose 144 mg/dL (83-110); Lipase 40 U/L (8-78); Potassium 3.3 mmol/L (3.5-5.1); Sodium 136 mmol/L (136-145)
[2024-11-14] MEDS ORDERED: hydrALAZINE 20 MG/ML VIAL SLOW IVP PRN ×2 (08:55→17:42)
[2024-11-14] MEDS: Potassium Chloride 20 MEQ in Premix 1 BAG IVPB SCH (11:44)
[2024-11-14] MEDS: Albumin 25% 25 GM (100 mL) BOT IVPB SCH ×2 (14:45→20:28)
[2024-11-14] MEDS: Carvedilol 6.25 MG TAB PO SCH (17:51)
[2024-11-14] MEDS: Heparin 5,000 UNITS/ML VIAL SC SCH (20:27)
[2024-11-15 03:48] LABS: #Basophils Less than 0.03 10x3/uL (0.0-0.2); #Eosinophils 0.05 10x3/uL (0.0-0.7); #Monocytes 1.08 10x3/uL (0.11-0.59); #Neutrophils 9.69 10x3/uL (1.40-6.50); %Basophils 0.2 % (0.0-1.0); %Eosinophils 0.4 % (0.0-10.0); %Lymphocytes 11.2 % (21.0-51.0); %Monocytes 8.4 % (0.0-10.0); %Neutrophils 75.7 % (42.0-75.0); Hematocrit 21.5 % (36.0-47.0); Hemoglobin 6.8 g/dL (12.0-16.0); Mean Corpuscular Hemoglobin 31.2 pg (27.0-31.0); Mean Corpuscular Volume 98.6 fL (78.0-98.0); Platelet Count 107 10x3/uL (130-400); Red Blood Cell (RBC) Count 2.18 mill/uL (4.20-5.40); White Blood Cell (WBC) Count 12.80 10x3/uL (4.8-10.8)
[2024-11-15 03:59] LABS: ALT (SGPT) 26 U/L (Less than 34); AST (SGOT) 36 U/L (11-34); Albumin 3.4 g/dL (3.1-4.5); Alkaline Phosphatase 39 U/L (40-110); Anion Gap 16 mmol/L (10-20); BUN (Urea Nitrogen) 49 mg/dL (9.8-20.1); Bilirubin, Total 0.5 mg/dL (0.3-1.2); Calc. Creatinine Clearance 14 mL/min (70-130); Calcium 8.6 mg/dL (7.8-10.44); Carbon Dioxide 19 mmol/L (23-31); Chloride 103 mmol/L (98-107); Globulin 2.6 g/dL (2.4-3.5); Glucose 116 mg/dL (83-110); Potassium 3.2 mmol/L (3.5-5.1); Sodium 135 mmol/L (136-145)
[2024-11-15] MEDS: Aspirin 81 mg Enteric Coated Tablet PO SCH (08:32)
[2024-11-15] MEDS: Pantoprazole 40 MG DR.TAB PO SCH ×2 (08:33→20:59)
[2024-11-15] MEDS: Carvedilol 6.25 MG TAB PO SCH (08:33)
[2024-11-15 20:56] LABS: Hematocrit 26.1 % (36.0-47.0); Hemoglobin 8.4 g/dL (12.0-16.0); Mean Corpuscular Hemoglobin 32.1 pg (27.0-31.0); Mean Corpuscular Volume 99.6 fL (78.0-98.0); Platelet Count 134 10x3/uL (130-400); Red Blood Cell (RBC) Count 2.62 mill/uL (4.20-5.40); White Blood Cell (WBC) Count 14.67 10x3/uL (4.8-10.8)
[2024-11-15 21:00] LABS: Iron 62 ug/dL (50-170); Iron Binding Capacity, Total 161 mcg/dL (265-497)
[2024-11-15 21:10] LABS: INR-International Normal Ratio 1.1; PTT 29.1 sec (22.9-36.1); Prothrombin Time 13.9 sec (12.0-14.7)
[2024-11-15] MEDS: Acetaminophen 325 MG TAB PO PRN (23:05)
[2024-11-16 05:12] LABS: Hematocrit 24.7 % (36.0-47.0); Hemoglobin 8.0 g/dL (12.0-16.0); Mean Corpuscular Hemoglobin 31.5 pg (27.0-31.0); Mean Corpuscular Volume 97.2 fL (78.0-98.0); Platelet Count 158 10x3/uL (130-400); Red Blood Cell (RBC) Count 2.54 mill/uL (4.20-5.40); White Blood Cell (WBC) Count 13.47 10x3/uL (4.8-10.8)
[2024-11-16 05:27] LABS: ALT (SGPT) 25 U/L (Less than 34); AST (SGOT) 34 U/L (11-34); Albumin 3.0 g/dL (3.1-4.5); Alkaline Phosphatase 43 U/L (40-110); Anion Gap 13 mmol/L (10-20); BUN (Urea Nitrogen) 45 mg/dL (9.8-20.1); Bilirubin, Total 0.6 mg/dL (0.3-1.2); Calc. Creatinine Clearance 15 mL/min (70-130); Calcium 8.5 mg/dL (7.8-10.44); Carbon Dioxide 21 mmol/L (23-31); Chloride 104 mmol/L (98-107); Globulin 2.7 g/dL (2.4-3.5); Glucose 117 mg/dL (83-110); Magnesium 2.1 mg/dL (1.6-2.6); Potassium 3.0 mmol/L (3.5-5.1); Sodium 135 mmol/L (136-145)
[2024-11-16 05:43] LABS: Anisocytosis SLIGHT = 6-15 cells HPF (0-5); Platelet Adequacy Comment Platelets Normal; Polychromasia SLIGHT = 2-3 cells HPF (0-2)
[2024-11-16] MEDS: Potassium Chloride 20 MEQ in Premix 1 BAG IVPB SCH (17:22)
[2024-11-16] MEDS ORDERED: Heparin 5,000 UNITS/ML VIAL SC SCH (21:00)
[2024-11-16] MEDS: Benzonatate 100 MG CAP PO PRN (22:01)
[2024-11-17 06:25] LABS: Hematocrit 28.4 % (36.0-47.0); Hemoglobin 9.0 g/dL (12.0-16.0); Mean Corpuscular Hemoglobin 31.7 pg (27.0-31.0); Mean Corpuscular Volume 100.0 fL (78.0-98.0); Platelet Count 164 10x3/uL (130-400); Red Blood Cell (RBC) Count 2.84 mill/uL (4.20-5.40); White Blood Cell (WBC) Count 15.86 10x3/uL (4.8-10.8)
[2024-11-17 06:27] LABS: ALT (SGPT) 24 U/L (Less than 34); AST (SGOT) 39 U/L (11-34); Albumin 2.9 g/dL (3.1-4.5); Alkaline Phosphatase 44 U/L (40-110); Anion Gap 13 mmol/L (10-20); BUN (Urea Nitrogen) 43 mg/dL (9.8-20.1); Bilirubin, Total 0.5 mg/dL (0.3-1.2); Calc. Creatinine Clearance 15 mL/min (70-130); Calcium 8.4 mg/dL (7.8-10.44); Carbon Dioxide 20 mmol/L (23-31); Chloride 109 mmol/L (98-107); Globulin 2.9 g/dL (2.4-3.5); Glucose 87 mg/dL (83-110); Magnesium 2.1 mg/dL (1.6-2.6); Potassium 3.9 mmol/L (3.5-5.1); Sodium 138 mmol/L (136-145)
[2024-11-17 06:47] LABS: Burr Cells SLIGHT = 2-5 cells HPF (0-1); Macrocytosis SLIGHT = 6-15 cells HPF (0-5); Platelet Adequacy Comment Platelets Normal; Smudge Cells 6.7 %
[2024-11-17 16:51] VITALS: BMI 23.2
[2024-11-18 05:04] LABS: Hematocrit 27.1 % (36.0-47.0); Hemoglobin 8.4 g/dL (12.0-16.0); Mean Corpuscular Hemoglobin 31.6 pg (27.0-31.0); Mean Corpuscular Volume 101.9 fL (78.0-98.0); Platelet Count 199 10x3/uL (130-400); Red Blood Cell (RBC) Count 2.66 mill/uL (4.20-5.40); White Blood Cell (WBC) Count 17.06 10x3/uL (4.8-10.8)
[2024-11-18 05:21] LABS: ALT (SGPT) 20 U/L (Less than 34); AST (SGOT) 30 U/L (11-34); Albumin 2.8 g/dL (3.1-4.5); Alkaline Phosphatase 45 U/L (40-110); Anion Gap 14 mmol/L (10-20); BUN (Urea Nitrogen) 39 mg/dL (9.8-20.1); Bilirubin, Total 0.5 mg/dL (0.3-1.2); Calc. Creatinine Clearance 15 mL/min (70-130); Calcium 8.4 mg/dL (7.8-10.44); Carbon Dioxide 20 mmol/L (23-31); Chloride 109 mmol/L (98-107); Globulin 3.0 g/dL (2.4-3.5); Glucose 95 mg/dL (83-110); Potassium 4.0 mmol/L (3.5-5.1); Sodium 139 mmol/L (136-145)
[2024-11-18 05:26] LABS: Anisocytosis SLIGHT = 6-15 cells HPF (0-5); Macrocytosis SLIGHT = 6-15 cells HPF (0-5); Nucleated RBC (Manual Ct) 1 % (0); Platelet Adequacy Comment Platelets Normal
[2024-11-18] MEDS: oxyCODONE 5 MG TAB PO PRN (18:27)
[2024-11-19 05:14] LABS: #Basophils 0.05 10x3/uL (0.0-0.2); #Eosinophils 0.66 10x3/uL (0.0-0.7); #Monocytes 1.24 10x3/uL (0.11-0.59); #Neutrophils 12.96 10x3/uL (1.40-6.50); %Basophils 0.3 % (0.0-1.0); %Eosinophils 3.8 % (0.0-10.0); %Lymphocytes 10.8 % (21.0-51.0); %Monocytes 7.1 % (0.0-10.0); %Neutrophils 73.9 % (42.0-75.0); Hematocrit 24.7 % (36.0-47.0); Hemoglobin 8.0 g/dL (12.0-16.0); Mean Corpuscular Hemoglobin 32.0 pg (27.0-31.0); Mean Corpuscular Volume 98.8 fL (78.0-98.0); Platelet Count 193 10x3/uL (130-400); Red Blood Cell (RBC) Count 2.50 mill/uL (4.20-5.40); White Blood Cell (WBC) Count 17.51 10x3/uL (4.8-10.8)
[2024-11-19 05:46] LABS: ALT (SGPT) 17 U/L (Less than 34); AST (SGOT) 18 U/L (11-34); Albumin 2.7 g/dL (3.1-4.5); Alkaline Phosphatase 47 U/L (40-110); Anion Gap 18 mmol/L (10-20); BUN (Urea Nitrogen) 38 mg/dL (9.8-20.1); Bilirubin, Total 0.4 mg/dL (0.3-1.2); Calc. Creatinine Clearance 16 mL/min (70-130); Calcium 8.2 mg/dL (7.8-10.44); Carbon Dioxide 19 mmol/L (23-31); Chloride 109 mmol/L (98-107); Globulin 2.6 g/dL (2.4-3.5); Glucose 112 mg/dL (83-110); Potassium 3.7 mmol/L (3.5-5.1); Sodium 142 mmol/L (136-145)
[2024-11-19] MEDS: oxyCODONE/Acetaminophen 5 mg/325 mg Tablet PO PRN (17:14)
[2024-11-19] MEDS: Fluconazole 100 MG TAB PO SCH (17:16)
[2024-11-20 05:09] LABS: #Basophils 0.04 10x3/uL (0.0-0.2); #Eosinophils 0.61 10x3/uL (0.0-0.7); #Monocytes 0.93 10x3/uL (0.11-0.59); #Neutrophils 12.91 10x3/uL (1.40-6.50); %Basophils 0.2 % (0.0-1.0); %Eosinophils 3.7 % (0.0-10.0); %Lymphocytes 9.7 % (21.0-51.0); %Monocytes 5.6 % (0.0-10.0); %Neutrophils 78.5 % (42.0-75.0); Hematocrit 24.3 % (36.0-47.0); Hemoglobin 8.0 g/dL (12.0-16.0); Mean Corpuscular Hemoglobin 32.7 pg (27.0-31.0); Mean Corpuscular Volume 99.2 fL (78.0-98.0); Platelet Count 173 10x3/uL (130-400); Red Blood Cell (RBC) Count 2.45 mill/uL (4.20-5.40); White Blood Cell (WBC) Count 16.47 10x3/uL (4.8-10.8)
[2024-11-20 06:51] LABS: Chloride 110 mmol/L (98-107); Potassium 3.9 mmol/L (3.5-5.1); Sodium 138 mmol/L (136-145)
[2024-11-20 06:52] LABS: Albumin 2.5 g/dL (3.1-4.5); Calcium 8.5 mg/dL (7.8-10.44); Glucose 113 mg/dL (83-110)
[2024-11-20 06:53] LABS: Globulin 3.0 g/dL (2.4-3.5)
[2024-11-20 06:54] LABS: Anion Gap 16 mmol/L (10-20); Carbon Dioxide 16 mmol/L (23-31)
[2024-11-20 06:55] LABS: Alkaline Phosphatase 48 U/L (40-110); Bilirubin, Total 0.3 mg/dL (0.3-1.2)
[2024-11-20 06:56] LABS: BUN (Urea Nitrogen) 36 mg/dL (9.8-20.1); Calc. Creatinine Clearance 18 mL/min (70-130)
[2024-11-20 06:58] LABS: ALT (SGPT) 13 U/L (Less than 34); AST (SGOT) 18 U/L (11-34)
[2024-11-20] MEDS: Fluconazole 100 MG TAB PO SCH (09:59)
[2024-11-21 04:36] LABS: #Basophils 0.04 10x3/uL (0.0-0.2); #Eosinophils 0.61 10x3/uL (0.0-0.7); #Monocytes 0.91 10x3/uL (0.11-0.59); #Neutrophils 11.85 10x3/uL (1.40-6.50); %Basophils 0.3 % (0.0-1.0); %Eosinophils 3.9 % (0.0-10.0); %Lymphocytes 13.1 % (21.0-51.0); %Monocytes 5.8 % (0.0-10.0); %Neutrophils 75.2 % (42.0-75.0); Hematocrit 24.8 % (36.0-47.0); Hemoglobin 7.7 g/dL (12.0-16.0); Mean Corpuscular Hemoglobin 31.6 pg (27.0-31.0); Mean Corpuscular Volume 101.6 fL (78.0-98.0); Platelet Count 209 10x3/uL (130-400); Red Blood Cell (RBC) Count 2.44 mill/uL (4.20-5.40); White Blood Cell (WBC) Count 15.74 10x3/uL (4.8-10.8)
[2024-11-21 04:47] LABS: Anion Gap 15 mmol/L (10-20); BUN (Urea Nitrogen) 31 mg/dL (9.8-20.1); Calc. Creatinine Clearance 19 mL/min (70-130); Calcium 8.6 mg/dL (7.8-10.44); Carbon Dioxide 20 mmol/L (23-31); Chloride 108 mmol/L (98-107); Glucose 89 mg/dL (83-110); Potassium 4.0 mmol/L (3.5-5.1); Sodium 139 mmol/L (136-145)
[2024-11-21] MEDS: Fluconazole 100 MG TAB PO SCH (09:22)
[2024-11-21 19:50] VITALS: BP 123/57; TEMP 98.5
== END 2024-11-21 19:43 | DRG 871 ==
LOC: ERS 17:16 → CCU 11-10 00:31 → IMCU/EMU 11-14 08:39 → 2NO 11-16 00:04
PROVIDERS: ADMIT Student in an Organized Health Care Education/Training Program; ATTEND Student in an Organized Health Care Education/Training Program
PROC: 4A133R1 Monitoring of Arterial Saturation, Peripheral, Percutaneous Approach (ICD-10-PCS; 2024-11-09)
PROC: 5A12012 Performance of Cardiac Output, Single, Manual (ICD-10-PCS; principal; 2024-11-10)
PROC: 02HV33Z Insertion of Infusion Device into Superior Vena Cava, Percutaneous Approach (ICD-10-PCS; 2024-11-10)
PROC: 5A1945Z Respiratory Ventilation, 24-96 Consecutive Hours (ICD-10-PCS; 2024-11-10)
PROC: 0BH17EZ Insertion of Endotracheal Airway into Trachea, Via Natural or Artificial Opening (ICD-10-PCS; 2024-11-10)
PROC: 3E043XZ Introduction of Vasopressor into Central Vein, Percutaneous Approach (ICD-10-PCS; 2024-11-10)
PROC: 3E04329 Introduction of Other Anti-infective into Central Vein, Percutaneous Approach (ICD-10-PCS; 2024-11-10)
PROC: 30233J1 Transfusion of Nonautologous Serum Albumin into Peripheral Vein, Percutaneous Approach (ICD-10-PCS; 2024-11-14)
DX: A41.51 Sepsis due to Escherichia coli [E. coli] (principal); G93.41 Metabolic encephalopathy; I46.9 Cardiac arrest, cause unspecified; I21.4 Non-ST elevation (NSTEMI) myocardial infarction; J96.01 Acute respiratory failure with hypoxia; N17.0 Acute kidney failure with tubular necrosis; N18.4 Chronic kidney disease, stage 4 (severe); E87.20 Acidosis, unspecified; E44.0 Moderate protein-calorie malnutrition; K92.2 Gastrointestinal hemorrhage, unspecified; I82.621 Acute embolism and thrombosis of deep veins of right upper extremity; B37.49 Other urogenital candidiasis; F32.A Depression, unspecified; E03.9 Hypothyroidism, unspecified; I12.9 Hypertensive chronic kidney disease with stage 1 through stage 4 chronic kidney disease, or unspecified chronic kidney disease; D63.1 Anemia in chronic kidney disease; I48.0 Paroxysmal atrial fibrillation; I73.9 Peripheral vascular disease, unspecified; R13.12 Dysphagia, oropharyngeal phase; G43.909 Migraine, unspecified, not intractable, without status migrainosus; Z98.890 Other specified postprocedural states; Z88.1 Allergy status to other antibiotic agents; Z88.8 Allergy status to other drugs, medicaments and biological substances; Z82.49 Family history of ischemic heart disease and other diseases of the circulatory system; Z90.710 Acquired absence of both cervix and uterus; Z90.49 Acquired absence of other specified parts of digestive tract; Z87.81 Personal history of (healed) traumatic fracture; Z79.82 Long term (current) use of aspirin; Z79.899 Other long term (current) drug therapy; Z79.2 Long term (current) use of antibiotics; Z68.26 Body mass index [BMI] 26.0-26.9, adult
CPT/HCPCS: 31500; 36415; 36416; 36556; 36600; 51701; 70450; 71045; 71275; 74018; 74176; 80048; 80053; 80061; 80202; 81001; 82274; 82550; 82728; 82805; 83540; 83550; 83605; 83690; 83735; 83880; 84100; 84443; 84484; 85014; 85018; 85025; 85049; 85610; 85730; 86141; 86850; 86900; 86901; 87040; 87077; 87086; 87149; 87186; 92950; 93005; 93010; 93306; 93970; 94002; 94003; 96361; 96365; 96366; 96368; 96375; 96376; J0165; J0282; J0360; J0696; J1200; J1308; J1644; J2250; J2270; J2405; J2470; J2543; J2550; J2704; J2919; J3010; J3373; J3473; J3475; J3480; J7042; J7070; J7120; P9047; Q0162; Q9967

== ENCOUNTER 2024-12-29 23:42 | Observation (INO) | payer MEDICARE, BC ==
[2024-12-30 03:46] LABS: #Basophils 0.06 10x3/uL (0.0-0.2); #Eosinophils 0.47 10x3/uL (0.0-0.7); #Monocytes 0.89 10x3/uL (0.11-0.59); #Neutrophils 10.03 10x3/uL (1.40-6.50); %Basophils 0.4 % (0.0-1.0); %Eosinophils 3.2 % (0.0-10.0); %Lymphocytes 20.1 % (21.0-51.0); %Monocytes 6.1 % (0.0-10.0); %Neutrophils 69.1 % (42.0-75.0); Hematocrit 34.5 % (36.0-47.0); Hemoglobin 11.0 g/dL (12.0-16.0); Mean Corpuscular Hemoglobin 30.6 pg (27.0-31.0); Mean Corpuscular Volume 96.1 fL (78.0-98.0); Platelet Count 155 10x3/uL (130-400); Red Blood Cell (RBC) Count 3.59 mill/uL (4.20-5.40); White Blood Cell (WBC) Count 14.53 10x3/uL (4.8-10.8)
[2024-12-30] MEDS ORDERED: Pantoprazole 40 MG VIAL ONE (04:01)
[2024-12-30 04:07] LABS: ALT (SGPT) 13 U/L (Less than 34); AST (SGOT) 21 U/L (11-34); Albumin 3.3 g/dL (3.1-4.5); Alkaline Phosphatase 90 U/L (40-110); Anion Gap 19 mmol/L (10-20); BUN (Urea Nitrogen) 29 mg/dL (9.8-20.1); Bilirubin, Total 0.3 mg/dL (0.3-1.2); CK (CPK) 46 U/L (29-168); Calc. Creatinine Clearance 0 mL/min (70-130); Calcium 9.6 mg/dL (7.8-10.44); Carbon Dioxide 13 mmol/L (23-31); Chloride 110 mmol/L (98-107); Globulin 3.9 g/dL (2.4-3.5); Glucose 106 mg/dL (83-110); Lipase 30 U/L (8-78); Magnesium 2.3 mg/dL (1.6-2.6); Potassium 3.8 mmol/L (3.5-5.1); Sodium 138 mmol/L (136-145)
[2024-12-30 05:38] LABS: Bacteria/HPF None Seen HPF (None Seen); CAUTI Indications for Culture Dysuria,urgency,freq; Glucose, Urine (Dipstick) Normal (Negative); Leukocyte 250 Leu/uL (Negative); Protein, Urine (Dipstick) 30 mg/dL (Neg-Trace); RBC/HPF 0-3 HPF (0-3); Specific Gravity, Urine 1.017 (1.002-1.036); WBC/HPF 0-3 HPF (0-3)
[2024-12-30 05:44] LABS: Urine Culture Reflex No No
[2024-12-30] MEDS ORDERED: Melatonin 3 MG TAB PO PRN (09:29)
[2024-12-30] MEDS ORDERED: Ketorolac Tromethamine 30 MG (1 mL) VIAL IVP PRN (09:29)
[2024-12-30] MEDS ORDERED: Acetaminophen 325 MG TAB PO PRN (09:29)
[2024-12-30] MEDS ORDERED: Ondansetron PF 4 MG/2 ML Vial IVP PRN (09:29)
[2024-12-30 10:05] VITALS: BMI 22.0
[2024-12-30] MEDS: Carvedilol 6.25 MG TAB PO SCH (17:10)
[2024-12-30] MEDS: Famotidine/PF 20 mg/2ml Vial SLOW IVP SCH (22:18)
[2024-12-30] MEDS: Lactulose 20 GM (30 mL) UDCUP PO SCH (22:20)
[2024-12-30] MEDS: Mupirocin 1 GM TUBE TP SCH (22:40)
[2024-12-31 05:55] LABS: #Basophils 0.07 10x3/uL (0.0-0.2); #Eosinophils 0.54 10x3/uL (0.0-0.7); #Monocytes 0.82 10x3/uL (0.11-0.59); #Neutrophils 11.33 10x3/uL (1.40-6.50); %Basophils 0.4 % (0.0-1.0); %Eosinophils 3.4 % (0.0-10.0); %Lymphocytes 17.2 % (21.0-51.0); %Monocytes 5.2 % (0.0-10.0); %Neutrophils 72.3 % (42.0-75.0); Hematocrit 34.7 % (36.0-47.0); Hemoglobin 11.2 g/dL (12.0-16.0); Mean Corpuscular Hemoglobin 32.0 pg (27.0-31.0); Mean Corpuscular Volume 99.1 fL (78.0-98.0); Platelet Count 149 10x3/uL (130-400); Red Blood Cell (RBC) Count 3.50 mill/uL (4.20-5.40); White Blood Cell (WBC) Count 15.70 10x3/uL (4.8-10.8)
[2024-12-31 06:12] LABS: Anion Gap 16 mmol/L (10-20); BUN (Urea Nitrogen) 29 mg/dL (9.8-20.1); Calc. Creatinine Clearance 18 mL/min (70-130); Calcium 9.4 mg/dL (7.8-10.44); Carbon Dioxide 13 mmol/L (23-31); Chloride 111 mmol/L (98-107); Glucose 89 mg/dL (83-110); Potassium 4.0 mmol/L (3.5-5.1); Sodium 136 mmol/L (136-145)
[2024-12-31] MEDS: Aspirin 81 mg Enteric Coated Tablet PO SCH (10:23)
[2024-12-31] MEDS: Enoxaparin 30 MG (0.3 mL) SYRINGE SC SCH (10:32)
[2024-12-31 12:45] VITALS: BMI 22.0
[2025-01-01 10:06] VITALS: BP 133/73
[2025-01-01 10:50] VITALS: TEMP 97.9
== END 2025-01-01 11:41 | disposition hospice, home (50) ==
LOC: ERS 23:42 → ERHOLD 12-30 08:22 → 2SE 12-30 13:20
PROVIDERS: ADMIT Family Medicine; ATTEND Student in an Organized Health Care Education/Training Program
DX: D72.829 Elevated white blood cell count, unspecified (principal); R79.89 Other specified abnormal findings of blood chemistry; F03.90 Unspecified dementia, unspecified severity, without behavioral disturbance, psychotic disturbance, mood disturbance, and anxiety; E03.9 Hypothyroidism, unspecified; I12.9 Hypertensive chronic kidney disease with stage 1 through stage 4 chronic kidney disease, or unspecified chronic kidney disease; N18.4 Chronic kidney disease, stage 4 (severe); S81.801A Unspecified open wound, right lower leg, initial encounter; Z90.49 Acquired absence of other specified parts of digestive tract; Z90.710 Acquired absence of both cervix and uterus; Z91.041 Radiographic dye allergy status; Z88.1 Allergy status to other antibiotic agents; Z88.8 Allergy status to other drugs, medicaments and biological substances; Z79.890 Hormone replacement therapy; Z79.899 Other long term (current) drug therapy; X58.XXXA Exposure to other specified factors, initial encounter
CPT/HCPCS: 51701; 70450; 71045; 80048; 80053; 81001; 82550; 83690; 83735; 84484 ×2; 85025 ×2; 87428; 93005; 96372; 96374; 96375; 96376; 97139; 97530; 99285; G0378 ×4; J1650; J2470; J7030 ×2; 36415; J1308